=== PATIENT | male | born 1940 | race Caucasian/White ===

== ENCOUNTER 2016-09-02 11:30 | Inpatient (IN) | payer MEDICARE, OTHER ==
[2016-09-02] VITALS (8 sets, daily range): BP systolic 142–153; BP diastolic 69–84; PULSE 62–78; RESP 19–22; O2SAT 93–95
[~2016-09-02] VITALS: Ht 175.3 cm; Wt 114.3 kg
[~2016-09-02 11:30] MED LIST: AMLO10TA3 PO; ATEN100T PO; FENO130C6 PO; GABA800T2 PO; INSU100V7 SUBQ; LISI40TA PO; LOSA50TA37 PO; METF750T2 PO; SIMV10TA4 PO; SITA100T12 PO; TAMS0.4C98 PO; VIT1CAPS8 PO
--- NOTE | 2016-09-02 13:47 | DRSVH ---
PROCEDURE: X-RAY CHEST ONE VIEW, PORTABLE ([id number]) INDICATIONS: shortness of breath TECHNIQUE: One view of the chest was acquired. COMPARISON: [facility], CR, XR CHEST 1VW (PORTABLE), 07/15/2015, 12:47. [facility], CR, XR CHEST 1VW (PORTABLE), 07/17/2015, 13:34. FINDINGS: Surgical changes and devices: None. Lungs and pleura: No pleural effusions or pneumothorax. Lungs are clear. Elevation of the left hem idiaphragm redemonstrated. Mediastinum: Mediastinal contours appear normal. Situs inversus noted. Bones and chest wall: No suspicious bony lesions. Overlying soft tissues appear unremarkable. IMPRESSION: Situs inversus redemonstrated otherwise no acute cardiopulmonary process. Dictated by: Shine Angela [facility] Interpreted: Lilian Gonzales MD on 09/02/2016 at 13:45 Transcribed by: ADRIENNE on 09/02/2016 at 13:47 Approved by: Lilian Gonzales MD, PhD on 09/02/2016 at 17:04
--- NOTE | 2016-09-02 14:41 | ED.REPORT ---
HPI-Dyspnea / Wheezing Date of Service Sep 02, 2016 ED Provider: Pascale Weiner MD Mr. Durga Santiago is a 76-year-old male with past medical history significant for untreated sleep apnea likely obesity hypoventilation syndrome, situs inversus, insulin requiring diabetes type II, Hypertension, who presents to [facility] emergency department with 3-4 day history of extreme dyspnea at rest that worsens with activity. He been treating his sleep apnea with an O2 concentrator at 2 L nasal cannula at night for 1 year now. He discontinued O2 at night 3 weeks ago, and 3-4 days ago he started experiencing extreme short of breath at rest. He visited the urgent care today and his O2 sats were in the 70s by pulse ox. Currently on 3 L nasal cannula here in the emergency department his O2 sats are 94%. His vitals are otherwise stable. He also notes that his lower extremity edema has increased mildly in the last several days. He denies fever, chills, syncope, chest pain, abdominal pain, nausea, vomiting, or consultation, diarrhea, dysuria. He denies sick contacts. He also states that he is compliant with home medications. He reports cough with exertion, shortness of breath, orthopnea, hypersomnolence. Nursing Notes Stated Complaint: SHORTNESS OF BREATH Chief Complaint: Respiratory Complaints Nursing Notes Reviewed: Yes Allergies: Coded Allergies: No Known Allergies (Unverified , 08/21/15) Scheduled Amlodipine (Amlodipine) 10 Mg Tablet 10 MG PO DAILY Atenolol (Atenolol) 100 Mg Tablet 100 MG PO DAILY Fenofibrate,Micronized (Fenofibrate) 130 Mg Capsule 130 MG PO DAILY Gabapentin (Gabapentin) 800 Mg Tablet 800 MG PO TID Insulin Glargine (Lantus U100 Insulin Vial) 100 Unit/Ml Vial 15 UNIT SUBQ DAILY Lisinopril (Lisinopril) 40 Mg Tablet 40 MG PO DAILY Losartan Potassium (Losartan Potassium) 50 Mg Tablet 50 MG PO DAILY Metformin ER (Metformin ER) 750 Mg Tablet 750 MG PO TID Simvastatin (Simvastatin) 10 Mg Tablet 10 MG PO HS Sitagliptin Phos (Januvia) 100 Mg Tablet 100 MG PO DAILY Tamsulosin (Flomax) 0.4 Mg Capsule 0.4 MG PO DAILY Vit C/Vit E/Lutein/Min/Dickens-3 (Ocuvite Softgel) 1 Each Capsule 1 EACH PO DAILY General Time Seen by MD: 13:53 Chief Complaint Shortness of breath Past Medical History Past Medical History Notes: Situs inversus Sleep apnea Hypersomnolence Insulin requiring diabetes type II Hypertension Past Medical History Emphysema MS Dextrocardia Reports: Diabetes mellitus, Hypertension Past Surgical History Gastric banding Vasectomy Family History noncontributory Smoking History Former Smoker Ambulatory Status Independent Review of Systems A comprehensive review of systems was conducted with the patient and found to be negative except as above in the History of Present Illness Physical Exam General: Very pleasant obese individual sitting in bed currently in no acute distress, with nasal cannula in place 3 L O2, well-nourished, appropriately interactive HEENT: Normocephalic, atraumatic. External ears without defect. Pupils equal, round, and reactive to light and accommodation. Anicteric sclerae, moist conjunctivae, and no lid lag. Oropharynx free of erythema and cobble stoning with moist mucosa. Neck: Supple with full range of motion. No jugular venous distension. No bruits. No lymphadenopathy or thyromegaly. Cardiovascular: Patient with situs inversus heart sounds were mirror image on the right side of chest. Regular rate and rhythm with no murmurs, rubs, or gallops appreciated. Prominent S2. Pulmonary: Clear to auscultation bilaterally with mild crackles, mild wheezes, mild scattered rhonchi. Abnormal respiratory effort with use of accessory muscles. Abdomen: Bowel tones present. Soft, nontender, nondistended. No hepatosplenomegaly or masses appreciated. Extremities: No clubbing, cyanosis, mild to moderate lower extremity pitting edema, or lymphadenopathy appreciated. Skin: Normal temperature, turgor, and texture; no rash, ulcers, or subcutaneous nodules appreciated. Neurological: Cranial nerves grossly intact. Normal muscle strength, tone, and bulk. Reflexes, coordination, and sensory function within normal limits. No known gait impairment. Psychiatric: Normal mood and affect. Alert and oriented to person, place, and time. Initial Vital Signs Vital Signs (First) Date Time Temp Pulse Resp B/P Pulse Ox O2 Delivery O2 Flow Rate FiO2 09/02/16 11:34 36.9 69 20 143/69 94 Room Air 09/02/16 13:41 3 Interpretation & Diagnostics Lab Results Interpretation Result Diagram: 09/02/16 1445 09/02/16 1445 Test 09/02/16 14:45 White Blood Count 5.9th/mm3 (3.8-10.1) Red Blood Count 4.18mil/mm3 (4.40-5.80) Hemoglobin 13.5g/dL (13.8-17.2) Hematocrit 42.9% (41.0-50.0) Mean Corpuscular Volume 102.6fL (81-100) Mean Corpuscular Hemoglobin 32.3pg (27.0-35.0) Mean Corpuscular Hemoglobin Concent 31.5% (32.0-37.0) Red Cell Distribution Width 13.6% (12.3-15.4) Platelet Count 142bil/L (150-400) Neutrophils (%) (Auto) 74.0% (40-74) Lymphocytes (%) (Auto) 14.7% (14-46) Monocytes (%) (Auto) 9.0% (4-12) Eosinophils (%) (Auto) 1.9% (0-5) Basophils (%) (Auto) 0.2% (0-3) Sodium Level 143mEq/L (134-144) Potassium Level 4.9mEq/L (3.5-5.2) Chloride Level 100mEq/L (97-108) Carbon Dioxide Level 32mmol/L (18-29) Blood Urea Nitrogen 20mg/dL (8-27) Creatinine 0.76mg/dL (0.76-1.27) Estimat Glomerular Filtration Rate 106mL/min (>59) Glucose Level 124mg/dL (60-99) Calcium Level 9.6mg/dL (8.5-10.1) Total Bilirubin 0.4mg/dL (0.0-1.2) Aspartate Amino Transf (AST/SGOT) 15U/L (0-50) Alanine Aminotransferase (ALT/SGPT) 11U/L (0-44) Alkaline Phosphatase 30U/L (25-160) Troponin T < 0.010ug/L (0.0-0.011) Pro-B-Type Natriuretic Peptide 572.3pg/mL (0-486) Total Protein 7.6g/dL (6.4-8.4) Albumin 4.2g/dL (3.4-5.0) Hold Martinez Top Tube Received (Received) Re-Eval/Medical Decision Med Decision/Clinical Course Mr. Durga Santiago is a 76-year-old male with past medical history significant for untreated sleep apnea likely obesity hypoventilation syndrome, situs inversus, insulin requiring diabetes type II, Hypertension, who presents to [facility] emergency department with 3-4 day history of extreme dyspnea at rest that worsens with activity. He been treating his sleep apnea with an O2 concentrator at 2 L nasal cannula at night for 1 year now. He discontinued O2 at night 3 weeks ago, and 3-4 days ago he started experiencing extreme short of breath at rest and with activity. Differential diagnoses includes CHF, COPD exacerbation, respiratory failure, MS , obesity hyperventilation syndrome, pulmonary hypertension... Patient is experiencing significant respiratory failure with sats in the 70% on room air at urgent care. He has been using his oxygen the last 4 days with no ability to find relief of shortness of breath. His physical exam findings of worsening lower extremity edema and hypoxia on room air along with situs inversus and obesity hyperventilation syndrome with poorly controlled sleep apnea is likely exacerbating secondary effects of Pulmonary hypertension and some element of congestive heart failure. Although his initial troponins and EKG were normal, and his pro-BNP was just above normal limits, he is exhibiting clinical signs and symptoms that need to be treated. He is certainly hypercapnic CO2 32. Admission to the hospital and cardiac consult with echo is recommended. Discharge & Departure Impression: Primary Impression: Respiratory distress Additional Impressions: COPD with acute exacerbation Congestive cardiac failure Edema Disposition: ADMITTED TO HOSPITAL Referrals: Nicholas Boggs MD (PCP) Attending Statement 76-year-old gentleman presents with oxygen saturations in the 70 range on room air. He uses oxygen only at night in place of CPAP which would be far more appropriate. Oxygen saturations improved with 4 L of nasal cannula increased edema on concern for developing congestive heart failure. Hypoxic respiratory failure with increasing hypercarbia responding nicely to oxygenation. No evidence of pneumonia. Will likely benefit from diuresis and likely echocardiogram. Underlying severe sleep apnea is probably exacerbating all of the symptoms admission to the hospital is recommended. Will likely benefit from CPAP over the course of the evening while he is sleeping (his own BiPAP machine apparently is broken) Agree with documentation assessment and plan as above copies to: Nicholas Boggs MD, COREY P DO Sep 02, 2016 14:41 Pascale Weiner MD Sep 02, 2016 16:27
[2016-09-02 14:55] LABS: BASOPHILS % (AUTO) 0.2 % (0-3); EOSINOPHILS % (AUTO) 1.9 % (0-5); Mean Corpuscular Hemoglobin 32.3 pg (27.0-35.0); Mean Corpuscular Volume 102.6 fL (81-100); Platelet Count 142 bil/L (150-400)
[2016-09-02 15:43] LABS: TROPONIN T < 0.010 ug/L (0.0-0.011)
[2016-09-02] MEDS ORDERED: Ondansetron 2 mg/mL 2 mL Inj IVPUSH PRN (16:00)
[2016-09-02] MEDS ORDERED: Polyethylene Glycol (PEG) 17 Gm Powder PO PRN (16:00)
[2016-09-02] MEDS ORDERED: Alum-Mag Hydrox-Simeth 30 mL Suspension PO PRN (16:00)
--- NOTE | 2016-09-02 18:20 | NUR ---
Arrival to floor Pt arrived to floor in bed from ED, alert, oriented, O2 at 3L, IV SL. Pt denies pain at this time, states he is "just tired".
[2016-09-02 18:22] LABS: APPEARANCE,URINE CLEAR (CLEAR,HAZY); COLOR,URINE YELLOW (YELLOW)
[2016-09-02 18:23] LABS: OCCULT BLOOD,URINE NEGATIVE (NEGATIVE)
--- NOTE | 2016-09-02 19:11 | PCM.HPMED ---
Subjective Date of Service Sep 02, 2016 Primary Provider: Admitting Physician: Rochelle Seals DO Primary Care Physician: Nicholas Boggs MD Attending Physician: Rochelle Seals DO Chief Complaint: Shortness of breath and weakness History of Present Illness: 76 year old male presents with the c/o of weakness and SOB. The patient stated that he was prescribed oxygen at night time 2L for the last year. The patient stated that his PCP told him that his oxygen perscription was running out and that he needed to have a sleep study for HARRISON. The patient stated that he stopped using his oxygen in july and thought that he would go "natural/" for his sleep study scheduled for 09/19/16. The patient stated that he has been progresively becoming SOB and today he has become more weak. He stated that his daughters mentioned that while using the oxygen he was no longer having apenic episodes and he thought that he no longer had the problem and thought that he could go without the oxygen. Today the patient was extremely SOB and very weak and shaking. Since coming to the ED and being back on the oxygen he has been feeling better. 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 ETOH: former heavy drinker, currently only 1-2 vodkas per week Smoking: Quit 1976, previous 1.5-2PPD for 15 years Drugs: patient denies ROS 12pt review of systems was performed or attempted to be performed see HPI for pertinent positives Allergies Coded Allergies: No Known Allergies (Unverified , 08/21/15) PMH Social History Hx Alcohol Use: Yes (2 drinks max a couple of times a week) Hx Substance Use: No Smoking Status: Former Smoker Exam Vital Signs Vital Sign - Last Date Time Temp Pulse Resp B/P Pulse Ox O2 Delivery O2 Flow Rate FiO2 09/02/16 17:40 37.0 62 20 145/84 94 Nasal Cannula 2 Exam Physical Exam: Patient is situs inversus GEN: Patient was awake, alert, responding appropriately to questions HEENT: PERRLA, EOMI, Neck soft supple, trachea midline, nomocephalic/atraumatic CV: +S1/S2, RRR, no murmurs auscultated Respiratory: CTAB, no wheezes, rales, rhonchi GI: +bowel sounds x4, soft, compressible, non TTP, obese EXT: no c/c trace edema bilaterally Neuro: CN II-XII grossly intact Psych: mood and affect were appropriate Lab and Diagnostics Result Diagram: 09/02/16 1445 09/02/16 1445 Assessment & Plan 76 year old male who presents with a complaint of shortness of breath and weakness secondary to hypoxia Acute respiratory hypoxia from hypercapnia -Continue 2 L of nasal cannula -Duo nebs when necessary shortness of breath -Continue to monitor -Sleep study as an outpatient Weakness most likely secondary to chronic hypoxia -Continue oxygen maintaining oxygen saturations are 92% and above -PT evaluation Hypertension -Currently stable continue home medications Diabetes -Currently stable continue home medications -We will continue to monitor Hyperlipidemia -Currently stable continue simvastatin 10 mg daily DVT prophylaxis Lovenox Diet -Diabetic CODE STATUS: Patient is full code Disposition: Patient will most likely not cross to midnight, the patient will most likely just need re-oxygenation and a physical therapy evaluation. Patient has been admitted under observation status. Resuscitation Status: CPR: Attempt Resuscitation Time spent Greater than 35 minutes Rochelle Seals DO Sep 02, 2016 18:40
[2016-09-02] MEDS: Albuterol-Ipratropium 3 mL Inhalation Solution NEB PRN (20:12)
[2016-09-02] MEDS: Insulin GLARgine 100 Unit/mL Syringe SUBQ SCH (21:47)
[2016-09-02] MEDS: metFORMIN ER 500 mg ER24 Tablet PO SCH (22:17)
[2016-09-03] VITALS (10 sets, daily range): BP systolic 124–167; BP diastolic 67–82; PULSE 57–83; RESP 20–28; O2SAT 92–96
--- NOTE | 2016-09-03 04:54 | NUR ---
Respiratory Pt on 4L NC throughout shift d/t ongoing dyspnea; pt states "I feel better now than I have in weeks, but I'm still so weak and it's hard to breathe." SpO2 95% on 4L NC; CPOX in room for known HARRISON. Pt significantly weak on exertion, requires SBA-1PA. Pt c/o insomnia throughout shift, paged, one time order for melatonin placed and administered. Pt able to rest for several hours, and states "I might try getting that at home." Admission documentation complete, med rec clarified with pharmacy. Family to bring in copy of advanced directive. CHF booklet given to pt.
[2016-09-03 06:57] LABS: Mean Corpuscular Hemoglobin 32.2 pg (27.0-35.0); Mean Corpuscular Volume 104.1 fL (81-100)
[2016-09-03] MEDS ORDERED: Furosemide 10 mg/mL 2 mL Inj IVPUSH ONE (07:50)
[2016-09-03] MEDS ORDERED: Lisinopril 40 Tablet PO SCH (08:30)
[2016-09-03] MEDS: metFORMIN ER 500 mg ER24 Tablet PO SCH ×3 (08:38→20:37)
[2016-09-03] MEDS: Insulin GLARgine 100 Unit/mL Syringe SUBQ SCH (08:39)
--- NOTE | 2016-09-03 10:36 | NUR ---
Case Management: JAMES explained, patient signed, provided copy of JAMES signed 09/03/16 at 10:02am. CPerryRNCCM.
--- NOTE | 2016-09-03 16:00 | NUR ---
Social Work-initial assessment: Data:See initial assessment. Pt is a 76 y/o male who was admitted on 09/02/16 for dyspnea per H&P. Pt's insurance is [employer] and PCP is Nicholas Boggs Md. EMR Reviewed. Pt's readmissions score is 2. SW met with pt at bedside, SW role explained. Pt resides at home with his who pt is the primary caregiver for. Pt states his daughter is at home assisting with her. Pt does not use any DME and drives. Pt has no HH history, but has been to [facility]. 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 SW discussed DPOA/ advanced directive, pt states he has completed this, SW encouraged him to bring a copy into the hospital. PT worked with pt and recommended home with HH. SW discussed HH, pt states he would like SW to follow up tomorrow when his daughter is here. SW provided phone number and plan on white board. SW will continue to follow. Assessment:Pt who is independent at baseline. Plan:Pt to discharge home when medically stable. SW to follow up with pt and daughter regarding HH tomorrow. SW will continue to follow. SIMA Hernandez Addendum: 09/03/16 at 1604 by LAURO ANDERSON Amended: Links added.
--- NOTE | 2016-09-03 16:49 | PCM.PNMED ---
Subjective Date of Service Sep 03, 2016 Subjective Patient was examined at bedside today. Patient denies any chest pain, nausea, vomiting, diarrhea. The patient still reports shortness of breath and is in need of oxygen support. Nursing reported that overnight the patient did not do well with decreasing his oxygen as his saturations dropped into the mid 80s. Exam Vital Signs Vital Sign - Last Date Time Temp Pulse Resp B/P Pulse Ox O2 Delivery O2 Flow Rate FiO2 09/03/16 16:31 36.6 66 20 146/77 94 Nasal Cannula 4.00 Intake and Output 09/02/16 09/02/16 09/03/16 Cumulative From/Thru 15:00 23:00 07:00 09/02/16 11:34 - 09/03/16 05:35 Intake Total 300 ml 300 ml Output Total 950 ml 950 ml Balance -650 ml -650 ml Intake Oral 300 ml 300 ml Output Urine Total 950 ml 950 ml Exam Physical Exam: Patient is situs inversus GEN: Patient was awake, alert, responding appropriately to questions HEENT: PERRLA, EOMI, Neck soft supple, trachea midline, nomocephalic/atraumatic CV: +S1/S2, RRR Respiratory: CTAB, no wheezes, rales, rhonchi GI: +bowel sounds x4, soft, compressible, non TTP EXT: no c/c +1 pitting edema in the lower extremities Neuro: CN II-XII grossly intact Psych: mood and affect were appropriate IVs and Medications Medications Reviewed: Medications were reviewed in detail Medications Current Medications Al Hydrox/Mg Hydrox/Simethicone 30 ml Q6H PRN PO; Start 09/02/16 at 16:00 Ondansetron HCl 4 to 8 mg Q4H PRN IVPUSH; Start 09/02/16 at 16:00 Senna 17.2 mg BID PRN PO; Start 09/02/16 at 16:00 Polyethylene Glycol 17 gm DAILY PRN PO; Start 09/02/16 at 16:00 Insulin Glargine 15 unit DAILY SUBQ Last administered on 09/03/16t 08:39; Admin Dose 15 UNIT; Start 09/02/16 at 19:15 Lisinopril 40 mg DAILY PO; Start 09/03/16 at 08:30; Stop 09/03/16 at 08:30; Status DC Losartan Potassium 50 mg DAILY PO Last administered on 09/03/16 08:38; Admin Dose 50 MG; Start 09/03/16 at 08:30 Tamsulosin HCl 0.4 mg DAILY PO Last administered on 09/03/16 08:38; Admin Dose 0.4 MG; Start 09/03/16 at 08:30 Amlodipine Besylate 10 mg DAILY PO Last administered on 09/03/16 08:38; Admin Dose 10 MG; Start 09/03/16 at 08:30 Atenolol 100 mg DAILY PO Last administered on 09/03/16 08:39; Admin Dose 100 MG ; Start 09/03/16 at 08:30 Gabapentin 800 mg TID PO Last administered on 09/03/16 14:33; Admin Dose 800 MG ; Start 09/02/16 at 20:30 Metformin HCl 750 mg TID PO Last administered on 09/03/16 14:33; Admin Dose 750 MG; Start 09/02/16 at 22:00 Pravastatin Sodium 20 mg HS PO Last administered on 09/02/16 21:44; Admin Dose 20 MG; Start 09/02/16 at 21:00 Sitagliptin Phosphate 100 mg DAILY PO Last administered on 09/03/16 08:38; Admin Dose 100 MG; Start 09/03/16 at 08:30 Albuterol/ Ipratropium 3 ml Q6H PRN NEB Last administered on 09/02/16 20:12; Admin Dose 3 ML; Start 09/02/16 at 19:15 Melatonin 5 mg HS PRN PO Last administered on 09/03/16 03:42; Admin Dose 5 MG ; Start 09/03/16 at 03:35 Lab and Diagnostics Result Diagram: 09/03/1615 09/03/1615 Assessment & Plan 76 year old male who presents with a complaint of shortness of breath and weakness secondary to hypoxia Acute respiratory hypoxia from hypercapnia -Continue 2 L of nasal cannula -Duo nebs when necessary shortness of breath -Continue to monitor -Sleep study as an outpatient -Respiratory therapy has been consulted for possible home O2 usage Elevated BNP -Echo ordered results pending -1 time dose of IV Lasix 20 mg Weakness most likely secondary to chronic hypoxia -Continue oxygen maintaining oxygen saturations at 92% and above -PT evaluation Hypertension -Currently stable continue home medications Diabetes -Currently stable continue home medications -We will continue to monitor Hyperlipidemia -Currently stable continue simvastatin 10 mg daily DVT prophylaxis Lovenox Diet -Diabetic CODE STATUS: Patient is full code Disposition: The patient is currently requiring higher levels of oxygen needs at this time. Patient will be evaluated for possible home O2. We will make adjustments to patient's current medical therapy after echo results. We will continue to monitor and manage. VTE Mechanical Devices: Venous Foot Pump Resuscitation Status: CPR: Attempt Resuscitation Rochelle Seals DO Sep 03, 2016 16:49
[2016-09-04] VITALS (13 sets, daily range): BP systolic 136–170; BP diastolic 67–81; PULSE 59–72; RESP 14–22; O2SAT 86–98
--- NOTE | 2016-09-04 03:46 | NUR ---
NOC Lethargic/O2 supplementation Pt appears really lethargic around 1900, respirations dropping and o2 saturation running low 80's and had to be blasted on 7LPM Oxymask in order to maintain saturation around 90. Pt is little difficult to awaken and states that he feels really weak. Pt denies chest pain, n/v, abd discomfort. Will continue to monitor.
[2016-09-04] MEDS ORDERED: Furosemide 10 mg/mL 4 mL Inj IVPUSH ONE (06:25)
[2016-09-04 06:38] LABS: Mean Corpuscular Hemoglobin 33.4 pg (27.0-35.0); Mean Corpuscular Volume 103.6 fL (81-100)
--- NOTE | 2016-09-04 06:43 | ABG ---
DateTimeAnalyzed 06:39:00 -_ pH ____7.161 - 7.350 7.450 pCO2 109 -mmHg 35.0 45.0 pO2 ___78.8__ -mmHg 69.0 116 HCO3- ___37.2__ -mmol/L 22.0 26.0 ABE ____4.8__ -mmol/L -2.0 2.0 tHb ___13.0__ -g/dL O2Hb ___91.9__ -% COHb ____1.4__ -% MetHb ____0.9__ -% sO2 ___94.1__ -% 25.0 FIO2 ___40.0__ -% Drawn By blf - Date/Time Notified____ 06:43:00 -_ Spontaneous_RR ___18.0__ -b/min Liter_Flow ____5.0__ -L/min Oxygen Device 1 _oxy mask - Notified By blf - Notified Whom ___Dr. Fuimaono - B 766 -mmHg tO2 ___16.8__ -Vol% OrderingPhysicianInitials mf - Juan Pablo test N/A -
--- NOTE | 2016-09-04 07:08 | NUR ---
called family this am to update this RN talked with family to let them know pt condition and that he was being moved to room 2020. ph# [phone]
--- NOTE | 2016-09-04 07:33 | NUR ---
Transfer Pt transfer to 2019 EBER Garcia received pt with report.
--- NOTE | 2016-09-04 08:28 | NUR ---
Transfer assumed care of patient at about 0715. pt lethargic, on bi pap. sl. minimally responsive. 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 telemetry monitoring, stable and unchanged. RT adjusting bipap. will continue to monitor.
[2016-09-04] MEDS: metFORMIN ER 500 mg ER24 Tablet PO SCH ×3 (08:30→20:10)
[2016-09-04] MEDS: Insulin GLARgine 100 Unit/mL Syringe SUBQ SCH (08:30)
--- NOTE | 2016-09-04 09:56 | NUR ---
Respiratory pt continues to be lethargic and with decreased responsiveness. Bi-pap continues per RT adjustments. MD paged and came to see patient and update family. orders for abg. WCTM.
--- NOTE | 2016-09-04 10:12 | ABG ---
DateTimeAnalyzed 10:06:00 -_ pH ____7.246 - 7.350 7.450 pCO2 ___90.3__ -mmHg 35.0 45.0 pO2 ___67.7__ -mmHg 69.0 116 HCO3- ___37.9__ -mmol/L 22.0 26.0 ABE ____7.5__ -mmol/L -2.0 2.0 tHb ___12.9__ -g/dL O2Hb ___90.9__ -% COHb ____1.6__ -% MetHb ____0.9__ -% sO2 ___93.2__ -% 25.0 FIO2 ___50.0__ -% Pressure_Support ___24.0__ -cmH2O CPAP ___16.0__ -cmH2O Set_RR ___16.0__ -b/min Vt __450.0__ -L Drawn By gj - Date/Time Notified____ 10:11:00 -_ Spontaneous_RR ___18.0__ -b/min Oxygen Device 1 ____BIPAP - Notified By gj - Notified Whom ___BARNES - B 766 -mmHg tO2 ___16.5__ -Vol% Juan Pablo test _Positive -
--- NOTE | 2016-09-04 10:30 | DRSVH ---
[facility] [address] [place] [address] Echocardiogram Report Name: ABBY BRAVO te: 09/04/2016 Height: 6 9 in Hospital Exam Location: [facility] Weight: 2 43 lb Gender: Male BSA: 2.2 m2 : 1940 Age: 76 yrs BP: 170/7 5 mmHg Reason For Study: ELEVATED BNP History: Situs inversus, COPD, HTN, Diabetes Ordering Physician: HOSPITALIST [facility] Performed By: Kayla Iglesias Referring Physician: Dr. Nicholas Boggs Interpretation Summary Technically difficult study. The patient has Situs Inversus. Borderline concentric left ventricular hypertrophy with ejection fraction 60- 65%. Mild aortic valve sclerosis. Mild tricuspid regurgitation. Right ventricular systolic pressure is estimated to be 32 mmHg plus the clinically estimated CVP which cannot be estimated on this exam. Comparison is made with the echocardiogram of 07/16/2015, there has been no significant change. Procedure: A two-dimensional transthoracic echocardiogram with color flow and Doppler was performed. The study quality was technically difficult. The patient has SITUS INVERSUS. Comparison is made with the echocardiogram of 07/16/2015. A contrast injection of Definity was performed to improve assessment of LV function. The patient was in normal sinus rhythm during the exam. Left Ventricle: The left ventricle is normal in size. There is borderline concentric left ventricular hypertrophy. The ejection fraction is estimated to be 60-65%. There are no obvious focal wall motion abnormalities noted but poor endocardial definition reduces the sensitivity for the detection of such. Spectral Doppler of the mitral inflow yields an E/A ratio that is between 0.8 and 1.5. Right Ventricle: The right ventricle is not well visualized. Atria: The left atrium is not well visualized. Right atrium not well visualized. Mitral Valve: The mitral valve is grossly normal. There is no mitral regurgitation noted. Aortic Valve: The aortic valve is trileaflet. The aortic valve opens well. There is mild aortic valve sclerosis. No aortic regurgitation is present. Tricuspid Valve: The tricuspid valve leaflets are thin and pliable. There is mild tricuspid regurgitation. Right ventricular systolic pressure is estimated to be 32 mmHg plus the clinically estimated CVP which cannot be estimated on this exam. Pulmonic Valve: The pulmonic valve is not well seen, but is grossly normal. There is a trace or physiologic amount of pulmonic regurgitation. Great Vessels: The aortic root is normal size. The ascending aorta is at the upper limits of normal in size. The pulmonary artery is normal size. The IVC has a measurement of 22 mm. Inspiratory collapse cannot be assessed because the patient was unarousable, thus CVP cannot be estimated. Pericardium/ Pleura There is no pericardial effusion. MMode/2D Measurements & Calculations LVIDd: 4.3 cm IVC diam LVOT diam LV andrade. diameter/BSA LVIDs: 3.1 cm : 2.2 cm (cm/m^2): 1.9 FS: 27.3 % Ao root diam IVSd: 1.2 cm LVPWd: 0.90 cm asc Aorta Diam: 3.5 cm LV sys. diameter/BSA (cm/m^2): 1.4 Doppler Measurements & Calculations Ao V2 max MV E max david MV E/A: 1.1 TR max david : 136.3 cm/sec : 100.1 cm/sec Med Peak E' David : 283.8 cm/sec Ao max PG MV A max david TR max PG : 7.4 mmHg : 87.7 cm/sec E/E' med: 13.2 : 32.2 mmHg Ao mean PG MV P1/2t: 44.3 msec Lat Peak E' David PA V2 max : 4.0 mmHg : 107.2 cm/sec E/E' lat: 11.4 PA mean PG E/e' average: 12.3 MV A dur: 0.12 sec PA Accel Time : 0.10 sec MV dec time MV P1/2t max david Ao V2 mean PA V2 mean : 0.15 sec : 93.4 cm/sec : 77.1 cm/sec Ao V2 VTI: 31.1 cm MVA(P1/2t): 5.0 cm2 Electronically signed by: Suzette Sosa on Reading Physician:09/04/2016 10:29 AM
--- NOTE | 2016-09-04 11:40 | NUR ---
Medications discussed status of patient with MD regarding daily medications. instructed to withhold meds at this time while patient needing Bipap treatment. will continue to monitor.
--- NOTE | 2016-09-04 12:00 | PCM.PNMED ---
Subjective Date of Service Sep 04, 2016 Subjective Patient was seen and examined today at bedside. Overnight the patient began to become even more hypercapnic and somnolent. An ABG was done and showed that the patient was acidotic and his CO2 levels were over 100. It was decided that the patient needed to be placed on BiPAP. The patient was placed on BiPAP and then transferred to [facility]. The patient this morning was somnolent however he seemed to be improving and was able to respond to questions. The family was present at bedside. A family discussion was had and the patient's 2 daughters and were in agreement with the current plan. Exam Vital Signs Vital Sign - Last Date Time Temp Pulse Resp B/P Pulse Ox O2 Delivery O2 Flow Rate FiO2 09/04/16 08:22 CPAP/BIPAP 09/04/16 07:35 58 19 96 50 09/04/16 07:30 36.6 136/69 09/04/16 04:58 7.00 Intake and Output 09/03/16 09/03/16 09/04/16 Cumulative From/Thru 15:00 23:00 07:00 09/02/16 11:34 - 09/04/16 04:58 Intake Total 549 ml 400 ml 1249 ml Output Total 1175 ml 500 ml 2625 ml Balance -626 ml -100 ml -1376 ml Intake Oral 549 ml 400 ml 1249 ml Output Urine Total 1175 ml 500 ml 2625 ml Exam Physical Exam: Situs inversus GEN: Patient was awake, somnolent, able to follow commands HEENT: PERRLA, EOMI, Neck soft supple, trachea midline, nomocephalic/atraumatic CV: +S1/S2, RRR, systolic murmur auscultated Respiratory: Coarse breath sounds, BiPAP in place GI: +bowel sounds x4, soft, compressible, non TTP EXT: no c/c/+1 pitting edema improved from yesterday IVs and Medications Medications Reviewed: Medications were reviewed in detail Medications Current Medications Al Hydrox/Mg Hydrox/Simethicone 30 ml Q6H PRN PO; Start 09/02/16 at 16:00 Ondansetron HCl 4 to 8 mg Q4H PRN IVPUSH; Start 09/02/16 at 16:00 Senna 17.2 mg BID PRN PO; Start 09/02/16 at 16:00 Polyethylene Glycol 17 gm DAILY PRN PO; Start 09/02/16 at 16:00 Insulin Glargine 15 unit DAILY SUBQ Last administered on 09/03/16 08:39; Admin Dose 15 UNIT; Start 09/02/16 at 19:15 Lisinopril 40 mg DAILY PO; Start 09/03/16 at 08:30; Stop 09/03/16 at 08:30; Status DC Losartan Potassium 50 mg DAILY PO Last administered on 09/03/16 08:38; Admin Dose 50 MG; Start 09/03/16 at 08:30 Tamsulosin HCl 0.4 mg DAILY PO Last administered on 09/03/16 08:38; Admin Dose 0.4 MG; Start 09/03/16 at 08:30 Amlodipine Besylate 10 mg DAILY PO Last administered on 09/03/16 08:38; Admin Dose 10 MG; Start 09/03/16 at 08:30 Atenolol 100 mg DAILY PO Last administered on 09/03/16 08:39; Admin Dose 100 MG ; Start 09/03/16 at 08:30 Gabapentin 800 mg TID PO Last administered on 09/03/16 20:37; Admin Dose 800 MG ; Start 09/02/16 at 20:30 Metformin HCl 750 mg TID PO Last administered on 09/03/16 20:37; Admin Dose 750 MG; Start 09/02/16 at 22:00 Pravastatin Sodium 20 mg HS PO Last administered on 09/03/16 20:37; Admin Dose 20 MG; Start 09/02/16 at 21:00 Sitagliptin Phosphate 100 mg DAILY PO Last administered on 09/03/16 08:38; Admin Dose 100 MG; Start 09/03/16 at 08:30 Albuterol/ Ipratropium 3 ml Q6H PRN NEB Last administered on 09/02/16 20:12; Admin Dose 3 ML; Start 09/02/16 at 19:15 Melatonin 5 mg HS PRN PO Last administered on 09/03/16 03:42; Admin Dose 5 MG ; Start 09/03/16 at 03:35 Lab and Diagnostics Result Diagram: 09/04/16 0545 09/03/16 0615 Assessment & Plan 76 year old male who presents with a complaint of shortness of breath and weakness secondary to hypoxia Acute respiratory on chronic hypoxia with hypercapnia secondary to obesity hypoventilation syndrome -Continue BiPAP patient is a candidate for Trilogy therapy -Continue to monitor -Sleep study as an outpatient -Respiratory therapy has been consulted for possible home O2 usage (Trilogy mechanical ventilation Patient's PCO2 levels 102) -Telemetry Elevated BNP -Echo ordered results pending Weakness most likely secondary to chronic hypoxia -Continue oxygen maintaining oxygen saturations at 92% and above -PT evaluation deferred at this time the patient is currently on BiPAP Hypertension -Currently stable we will hold medications at this time and administer them as the patient becomes more hypertensive. Patient is currently needing continuous BiPAP. We will change medications from oral to IV as necessary Diabetes -Currently stable we will hold all home medications at this time as the patient is not eating continue Accu-Cheks and will adjust with sliding scale as necessary. -We will continue to monitor Hyperlipidemia -Currently stable we will hold all medications at this time until patient is no longer dependent on BiPAP DVT prophylaxis Lovenox GI prophylaxis: Protonix IV Diet -NPO while on BiPAP Diabetic CODE STATUS: Patient is full code Disposition: The patient's oxygen requirements have increased and the patient is trapping O2. The patient seems to be responding well to BiPAP therapy. We will continue BiPAP until patient returns back to his baseline mentation. Patient will remain nothing by mouth and we will monitor his blood sugars and treat him accordingly with insulin sliding scale. His blood pressure has been stable if it should start to increase we will control that with IV blood pressure medications as well. Because the patient has obesity hypoventilation syndrome and a PCO2 of greater than 50 he should qualify for Trilogy mechanical ventilation. It was noted by respiratory therapy that while the patient was on BiPAP he only had a tidal volume of 200 however when they did a jaw thrust his tidal volume increased to 500. The patient has been requiring nocturnal and daytime volume ventilation at this time and it seems that BiPAP may be insufficient due to the severity of his obesity hypoventilation syndrome. It is felt that the patient would benefit from Trilogy mechanical ventilation as it seems that the obesity hypoventilation syndrome seems to be the major cause of the patient's hypercapnia. The patient has been improving with BiPAP but Trilogy would most likely be more beneficial for this particular patient due to his obesity hypoventilation syndrome. GI Prophylaxis: Proton Pump Inhibitor VTE Prophylaxis: Sub-Q Enoxaparin VTE Mechanical Devices: Intermittant Pneumatic CD Resuscitation Status: CPR: Attempt Resuscitation Rochelle Seals DO Sep 04, 2016 12:00
[2016-09-04] MEDS: Pantoprazole 4 mg/mL 10 mL Inj IVPUSH SCH (13:04)
--- NOTE | 2016-09-04 16:08 | NUR ---
Social Work Note: Received call from [facility] BROADCAST TRAFFIC COORDINATOR Sommer, she reports pt. transferring to room #2020 today. She anticipates that pt. will most likely benefit from home health. Also spoke with Diane from [employer]. She reports pt. in process of getting trilogy for home use. P: BROADCAST TRAFFIC COORDINATOR to follow up on wether or not home health needed at time of d/c? Respiratory visit will be provided with trilogy delivery. BROADCAST TRAFFIC COORDINATOR unable to meet with pt/family today. SIMA Moncada
[2016-09-05] VITALS (15 sets, daily range): BP systolic 132–167; BP diastolic 57–79; PULSE 52–80; RESP 16–24; O2SAT 94–98
[2016-09-05 03:56] LABS: Mean Corpuscular Volume 104.9 fL (81-100)
--- NOTE | 2016-09-05 05:02 | NUR ---
Oliveros/BiPap Pt c/o full bladder, unable to urinate despite multiple tries. Bladder scan shows PVR of 658ml. paged, orders received for oliveros. Oliveros placed without complication at 2230. Pt somnolent at beginning of shift, BiPap at 50% O2. Pt awakens later in shift, requesting to remove BiPap. Placed on 6L oxymask and sating mid 90's, with RR stable 17-21. Pt later notes that he feels he is not able to breath when he falls asleep or when his head is laid back. RT made aware, placed back on BiPap at 0500 for HARRISON symptoms.
--- NOTE | 2016-09-05 05:13 | ABG ---
DateTimeAnalyzed 05:07:00 -_ pH ____7.334 - 7.350 7.450 pCO2 ___74.6__ -mmHg 35.0 45.0 pO2 ___75.7__ -mmHg 69.0 116 HCO3- ___38.6__ -mmol/L 22.0 26.0 ABE ___10.3__ -mmol/L -2.0 2.0 tHb ___12.2__ -g/dL O2Hb ___92.8__ -% COHb ____1.6__ -% MetHb ____0.9__ -% sO2 ___95.2__ -% 25.0 FIO2 ___48.0__ -% Drawn By MM - Date/Time Notified____ 05:12:00 -_ Spontaneous_RR ___19.0__ -b/min Liter_Flow ____6.0__ -L/min Oxygen Device 1 __oxymask - Notified By MM - Notified Whom RN - B 763 -mmHg tO2 ___16.0__ -Vol% Juan Pablo test _Positive -
[2016-09-05] MEDS: Insulin GLARgine 100 Unit/mL Syringe SUBQ SCH (08:30)
[2016-09-05] MEDS: metFORMIN ER 500 mg ER24 Tablet PO SCH ×3 (08:30→19:26)
[2016-09-05] MEDS: Pantoprazole 4 mg/mL 10 mL Inj IVPUSH SCH (08:59)
--- NOTE | 2016-09-05 11:41 | NUR ---
Social Work: Continued Discharge Planning D: Pt discussed in am rounds. [facility]. Pt lives at home with his . PT was able to work with the pt today- pt was not able to fully participate due to many lines and uncomfortable foly placement. Current recommendation is for SNF however pt may be able to advance towards a discharge home with HH. Per MD at rounds, pt will be here several more days. MACHINE PIE MAKER met with pt and family at bedside to discuss discharge planning. Current PT recommendation reviewed. Pt and family are agreeable to dual planning; SNF and HH Choice list provided to pt and dtr. Primary plan is to return home with [facility] for RN and PT. Pt understands he will need to demonstrate safe ambulation with PT. If he is unable to do so, pt is willing to go to [facility] [facility]. 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 He is eager to go home and care for her. As pt's was in the room, MACHINE PIE MAKER casually mentioned [facility] for pt's if pt requires SNF. They state that they will discuss this with MACHINE PIE MAKER at a later date if pt will, in fact, require SNF. SOFTWARE DATABASE ARCHITECT notified to provide referral and access for [facility]. PPW and PASSR completed and on chart. F2F in folder for MD signature. A: Pt who is I at baseline. P: Evolving; Either pt to d/c home with [facility] for RN, PT or SNF. [facility] [facility] reviewing. MACHINE PIE MAKER to continue to follow pt's progress. SIMA Barajas
--- NOTE | 2016-09-05 11:48 | NUR ---
Gave access and faxed facesheet to [facility] per FRUIT HARVESTER
--- NOTE | 2016-09-05 14:11 | PCM.PNMED ---
Subjective Date of Service Sep 05, 2016 Subjective Patient was seen and examined today at bedside. Patient's did have the BiPAP still in place. Patient's mentation has significantly improved and he is able to answer questions appropriately. Patient denies any chest pain, nausea, vomiting, diarrhea. Exam Vital Signs Vital Sign - Last Date Time Temp Pulse Resp B/P Pulse Ox O2 Delivery O2 Flow Rate FiO2 09/05/16 11:30 68 18 98 09/05/16 08:50 36.8 167/75 BiPAP 50 09/05/16 04:29 6.00 Intake and Output 09/04/16 09/04/16 09/05/16 Cumulative From/Thru 15:00 23:00 07:00 09/02/16 11:34 - 09/05/16 06:15 Intake Total 0 ml 1249 ml Output Total 550 ml 850 ml 4025 ml Balance -550 ml -850 ml -2776 ml Intake Oral 0 ml 1249 ml Output Urine Total 550 ml 850 ml 4025 ml # Voids 1 1 # Bowel Movements 0 0 Exam Physical Exam: GEN: Patient was awake, alert, responding appropriately to questions HEENT: PERRLA, EOMI, Neck soft supple, trachea midline, nomocephalic/atraumatic CV: +S1/S2, RRR, systolic murmurs auscultated Respiratory: Coarse breath sounds, BiPAP in place GI: +bowel sounds x4, soft, compressible, non TTP EXT: no c/c/+1 pitting edema Neuro: CN II-XII grossly intact Psych: mood and affect were appropriate IVs and Medications Medications Reviewed: Medications were reviewed in detail Medications Current Medications Pantoprazole 40 mg DAILY IVPUSH Last administered on 09/05/16 08:59; Admin Dose 40 MG; Start 09/04/16 at 11:55 Enoxaparin Sodium 40 mg Q24 SUBQ Last administered on 09/05/16 08:59; Admin Dose 40 MG; Start 09/04/16 at 12:27 Lab and Diagnostics Result Diagram: 09/05/163 09/05/163 Cardiac Echo Impressions [address] [address] Echocardiogram Report Name: ABBY BRAVO DStudmadison Da te: 09/04/2016 Height: 6 9 in Hospital Exam Location: [facility] Weight: 2 43 lb Gender: Male BSA: 2.2 m2 : 1940 Age: 76 yrs BP: 170/7 5 mmHg Reason For Study: ELEVATED BNP History: Situs inversus, COPD, HTN, Diabetes Ordering Physician: HOSPITALIST [facility] Performed By: Kayla Iglesias Referring Physician: Dr. Nicholas Boggs Interpretation Summary Technically difficult study. The patient has Situs Inversus. Borderline concentric left ventricular hypertrophy with ejection fraction 60- 65%. Mild aortic valve sclerosis. Mild tricuspid regurgitation. Right ventricular systolic pressure is estimated to be 32 mmHg plus the clinically estimated CVP which cannot be estimated on this exam. Comparison is made with the echocardiogram of 07/16/2015, there has been no significant change. Assessment & Plan 76 year old male who presents with a complaint of shortness of breath and weakness secondary to hypoxia Acute respiratory on chronic respiratory failure and hypoxia with hypercapnia secondary to obesity hypoventilation syndrome -Continue BiPAP patient is a candidate for Trilogy therapy -Continue to monitor -Sleep study as an outpatient -Respiratory therapy has been consulted for assistance with BiPAP management and possible home O2 usage (Trilogy mechanical ventilation Patient's PCO2 levels 102) -Continue Telemetry Elevated BNP -Echo results unchanged from previous echo 07/18/2016 Weakness most likely secondary to chronic hypoxia -Continue oxygen management -PT evaluation deferred at this time the patient is currently on BiPAP. BiPAP is being weaned today potential PT start tomorrow Hypertension -Patient is currently stable restart home medications Diabetes -Patient has started eating again, restart home medications -We will continue to monitor Hyperlipidemia -Restart patient's home medication DVT prophylaxis Lovenox GI prophylaxis: Protonix IV Diet -We will start diabetic diet CODE STATUS: Patient is full code Disposition: The patient is currently progressing and his ABG is improving. The patient is now able to eat however he still on 5 L of oxygen nasal cannula. Patient will need to wear the BiPAP at night as this is necessary with intermittent BiPAP usage during the day. He was again patient is a candidate for Trilogy. The patient's oxygen requirements have increased and the patient is still trapping O2. The patient seems to be responding well to BiPAP therapy. We will continue BiPAP until patient returns back to his baseline mentation. Patient will remain nothing by mouth and we will monitor his blood sugars and treat him accordingly with insulin sliding scale. His blood pressure has been stable if it should start to increase we will control that with IV blood pressure medications as well. Because the patient has obesity hypoventilation syndrome and a PCO2 of greater than 50 he should qualify for Trilogy mechanical ventilation. It was noted by respiratory therapy that while the patient was on BiPAP he only had a tidal volume of 200 however when they did a jaw thrust his tidal volume increased to 500. The patient has been requiring nocturnal and daytime volume ventilation at this time and it seems that BiPAP may be insufficient due to the severity of his obesity hypoventilation syndrome. It is felt that the patient would benefit from Trilogy mechanical ventilation as it seems that the obesity hypoventilation syndrome seems to be the major cause of the patient's hypercapnia and chronic respiratory failure. The patient has been improving with BiPAP but Trilogy would most likely be more beneficial for this particular patient due to his obesity hypoventilation syndrome. GI Prophylaxis: Proton Pump Inhibitor VTE Prophylaxis: Sub-Q Enoxaparin VTE Mechanical Devices: Intermittant Pneumatic CD Resuscitation Status: CPR: Attempt Resuscitation Rochelle Seals DO Sep 05, 2016 12:30
--- NOTE | 2016-09-05 19:28 | NUR ---
Resp/neuro SpO2 mid 90s on 5L NC through most of the day, pt tolerating well, stating not SOB at this time. Report given to oncoming RN MD wants pt back on Bibap through the night. Neuro: Pt A&O x3 however woke up disoriented. Pt stating didn't know where he was or why he was here. Reoriented pt, pt verbalized understanding stating "I just needed to wake up". Through the day pt A&O x3.
[2016-09-05] MEDS: Albuterol-Ipratropium 3 mL Inhalation Solution NEB PRN (21:02)
[2016-09-06] VITALS (13 sets, daily range): BP systolic 129–162; BP diastolic 64–86; PULSE 63–79; RESP 16–23; O2SAT 91–98
[2016-09-06 02:56] LABS: Mean Corpuscular Hemoglobin 31.9 pg (27.0-35.0); Mean Corpuscular Volume 102.9 fL (81-100)
--- NOTE | 2016-09-06 04:48 | NUR ---
HR Pt SR 60's. Pt placed onto Bipap for sleep overnight. While sleeping, pt SB in 53-60's. Pt has 3.58 second pause at 0300 and then back to SR 60's. made aware, no order changes at this time.
--- NOTE | 2016-09-06 07:16 | ABG ---
DateTimeAnalyzed 07:09:00 -_ pH ____7.389 - 7.350 7.450 pCO2 ___65.9__ -mmHg 35.0 45.0 pO2 ___75.4__ -mmHg 69.0 116 HCO3- ___38.9__ -mmol/L 22.0 26.0 ABE ___11.7__ -mmol/L -2.0 2.0 tHb ___12.2__ -g/dL O2Hb ___93.5__ -% COHb ____1.5__ -% MetHb ____1.0__ -% sO2 ___95.9__ -% 25.0 FIO2 ___21.0__ -% Drawn By RC - Date/Time Notified____ 07:16:00 -_ Spontaneous_RR ___24.0__ -b/min Liter_Flow ____5.0__ -L/min Oxygen Device 1 __CANNULA - Notified By RC - Notified Whom ___BARNES - B 749 -mmHg tO2 ___16.1__ -Vol% Juan Pablo test N/A -
[2016-09-06] MEDS: Pantoprazole 4 mg/mL 10 mL Inj IVPUSH SCH (07:53)
[2016-09-06] MEDS: metFORMIN ER 500 mg ER24 Tablet PO SCH ×3 (07:56→21:40)
[2016-09-06] MEDS: Insulin GLARgine 100 Unit/mL Syringe SUBQ SCH (07:58)
--- NOTE | 2016-09-06 16:01 | PCM.PNMED ---
Subjective Date of Service Sep 06, 2016 Subjective Patient was examined at bedside today. Patient denies any chest pain, nausea, vomiting, diarrhea. Patient is currently satting well on 5 L of oxygen. Patient states that he was able to tolerate the BiPAP machine last night and was able to tolerate his food. Exam Vital Signs Vital Sign - Last Date Time Temp Pulse Resp B/P Pulse Ox O2 Delivery O2 Flow Rate FiO2 09/06/16 15:39 37.0 76 20 152/73 95 Nasal Cannula 4.00 09/06/16 00:23 50 Intake and Output 09/05/16 09/05/16 09/06/16 Cumulative From/Thru 15:00 23:00 07:00 09/02/16 11:34 - 09/06/16 04:25 Intake Total 450 ml 1699 ml Output Total 800 ml 250 ml 5075 ml Balance -350 ml -250 ml -3376 ml Intake Oral 450 ml 1699 ml Output Urine Total 800 ml 250 ml 5075 ml # Voids 1 # Bowel Movements 0 0 Exam Physical Exam: GEN: Patient was awake, alert, responding appropriately to questions HEENT: PERRLA, EOMI, Neck soft supple, trachea midline, nomocephalic/atraumatic CV: +S1/S2, RRR, systolic murmurs auscultated Respiratory: CTAB, no wheezes, rales, rhonchi GI: +bowel sounds x4, soft, compressible, non TTP EXT: no c/c +1 pitting edema improved from yesterday Neuro: CN II-XII grossly intact Psych: mood and affect were appropriate IVs and Medications Medications Reviewed: Medications were reviewed in detail Lab and Diagnostics Result Diagram: 09/06/1623909/06/16 024 Cardiac Echo Impressions [address] [address] Echocardiogram Report Name: ABBY BRAVO Torsten Da te: 09/04/2016 Height: 6 9 in Hospital Exam Location: [facility] Weight: 2 43 lb Gender: Male BSA: 2.2 m2 : 1940 Age: 76 yrs BP: 170/7 5 mmHg Reason For Study: ELEVATED BNP History: Situs inversus, COPD, HTN, Diabetes Ordering Physician: HOSPITALIST [facility] Performed By: Kayla Iglesias Referring Physician: Dr. Nicholas Boggs Interpretation Summary Technically difficult study. The patient has Situs Inversus. Borderline concentric left ventricular hypertrophy with ejection fraction 60- 65%. Mild aortic valve sclerosis. Mild tricuspid regurgitation. Right ventricular systolic pressure is estimated to be 32 mmHg plus the clinically estimated CVP which cannot be estimated on this exam. Comparison is made with the echocardiogram of 07/16/2015, there has been no significant change. Assessment & Plan 76 year old male who presents with a complaint of shortness of breath and weakness secondary to hypoxia Acute respiratory on chronic respiratory failure and hypoxia with hypercapnia secondary to obesity hypoventilation syndrome -Patient is to be placed on oxygen during the day and BiPAP at night. -Begin to wean the patient's oxygen needs. -Continue to monitor -Sleep study as an outpatient -Respiratory therapy has been consulted for assistance with BiPAP management and possible home O2 usage (Trilogy mechanical ventilation Patient's PCO2 levels 102) -Continue Telemetry Elevated BNP -Echo results unchanged from previous echo 07/18/2016 Weakness most likely secondary to chronic hypoxia -Continue oxygen management. Patient should be on oxygen during the day and BiPAP at night. We will continue to wean the patient from oxygen. -PT evaluation deferred at this time the patient is currently on BiPAP. Hypertension -Patient is currently stable restart home medications Diabetes -Patient has started eating again, restart home medications -We will continue to monitor Hyperlipidemia -Restart patient's home medication DVT prophylaxis Lovenox GI prophylaxis: Protonix IV Diet -We will start diabetic diet CODE STATUS: Patient is full code Disposition: The patient is currently progressing well. The patient did well on BiPAP at night. Patient will be trialed with oxygen during the day and BiPAP at night. We will continue to wean the patient's oxygen needs during the day. Physical therapy has been consulted and should be working with the patient. The patient does show some signs of deconditioning and may need a half-way facility upon discharge. However the patient would prefer to go home. It is possible that as the patient's oxygen needs decreased he will also start to regain his strength and maybe be able to go home with home PT. The patient's oxygen requirements have increased and the patient is still trapping O2. The patient seems to be responding well to BiPAP therapy. We will continue BiPAP until patient returns back to his baseline mentation. Patient will remain nothing by mouth and we will monitor his blood sugars and treat him accordingly with insulin sliding scale. His blood pressure has been stable if it should start to increase we will control that with IV blood pressure medications as well. Because the patient has obesity hypoventilation syndrome and a PCO2 of greater than 50 he should qualify for Trilogy mechanical ventilation. It was noted by respiratory therapy that while the patient was on BiPAP he only had a tidal volume of 200 however when they did a jaw thrust his tidal volume increased to 500. The patient has been requiring nocturnal and daytime volume ventilation at this time and it seems that BiPAP may be insufficient due to the severity of his obesity hypoventilation syndrome. It is felt that the patient would benefit from Trilogy mechanical ventilation as it seems that the obesity hypoventilation syndrome seems to be the major cause of the patient's hypercapnia and chronic respiratory failure. The patient has been improving with BiPAP but Trilogy would most likely be more beneficial for this particular patient due to his obesity hypoventilation syndrome. GI Prophylaxis: Proton Pump Inhibitor VTE Prophylaxis: Sub-Q Enoxaparin VTE Mechanical Devices: Intermittant Pneumatic CD Resuscitation Status: CPR: Attempt Resuscitation Time spent Greater than 35 minutes Rochelle Seals DO Sep 06, 2016 16:01
--- NOTE | 2016-09-06 17:41 | NUR ---
Pt. Trilogy Set up with [facility] Bashir Segura, SPARK PLUG TESTER, Respiratory Therapist. Contact information [phone]. Pt. tolerating mask and Trilogy well. Pt. has 5 lpm bleedin O2, Sats 91-92%. Estimated Vt for Pt. set at 550. Pt. 5'9" tall and set for apx. 8cc/kg. Pt. states very comfortable on settings. Family at bedside for instruct. No questions at this time.
--- NOTE | 2016-09-06 17:56 | NUR ---
Oliveros/O2 Pt's oliveros catheter removed per Pt request this afternoon, Pt reports being able to spontaneously void without issue since catheter removal. Pt on 5L O2 via nasal cannula with SPO2 sat of 95% at beginning of shift, Pt's O2 decreased to 3L and SPO2 sats slowly decreased to 89-91%, O2 bumped up to 4L and SPO2 sats maintaining in the low 90s. Pt set up with trilogy today, Pt's SPO2 sats 89-92% on trilogy, Pt denied SOB and reported new machine to be comfortable, paged who instructed to keep SPO2 sats >90%. Upon returning to Pt's room, Pt had transitioned self back to nasal cannula in order to eat dinner, Pt verbalized that he will trial again after dinner.
[2016-09-07] VITALS (9 sets, daily range): BP systolic 136–164; BP diastolic 62–82; PULSE 61–73; RESP 16–20; O2SAT 91–96
[2016-09-07 03:47] LABS: Mean Corpuscular Hemoglobin 31.6 pg (27.0-35.0); Mean Corpuscular Volume 100.8 fL (81-100)
--- NOTE | 2016-09-07 05:44 | NUR ---
SpO2/Rest Pt kept appearing to desat during the shift manager into the low 80s but when RT would check the pt's SpO2 with their finger pulse ox the pt's SpO2 would be 91%. Pt's pulse ox probe was first changed from one finger probe to a new finger probe and this did not resolve the pt's low SpO2 readings. Pt's pulse ox probe was then changed to a toe probe. RT has continue to monitor pt's SpO2 throughout the shift manager. Pt's trilogy O2 bleed-in was initially 4L but RT increased the O2 bleed-in to 6L since the pt began to desat again r/t poor body alignment this time. Pt was able to sleep through most of the shift manager with very few disturbances.
--- NOTE | 2016-09-07 06:32 | ABG ---
DateTimeAnalyzed 06:27:00 -_ pH ____7.463 - 7.350 7.450 pCO2 ___51.1__ -mmHg 35.0 45.0 pO2 ___59.9__ -mmHg 69.0 116 HCO3- ___36.1__ -mmol/L 22.0 26.0 ABE ___10.8__ -mmol/L -2.0 2.0 tHb ___12.5__ -g/dL O2Hb ___90.3__ -% COHb ____1.7__ -% MetHb ____0.9__ -% sO2 ___92.7__ -% 25.0 FIO2 ___21.0__ -% Drawn By MD - Date/Time Notified____ 06:32:00 -_ Liter_Flow ____6.0__ -L/min Oxygen Device 1 __TRILOGY - Notified By MD - Notified Whom RN - B 746 -mmHg tO2 ___15.9__ -Vol% Juan Pablo test _Positive -
[2016-09-07] MEDS: metFORMIN ER 500 mg ER24 Tablet PO SCH ×3 (08:25→21:31)
[2016-09-07] MEDS: Pantoprazole 4 mg/mL 10 mL Inj IVPUSH SCH (08:25)
[2016-09-07] MEDS: Insulin GLARgine 100 Unit/mL Syringe SUBQ SCH (08:36)
--- NOTE | 2016-09-07 13:19 | PCM.PNMED ---
Subjective Date of Service Sep 07, 2016 Subjective Patient was examined at bedside today. Patient denies any chest pain, nausea, vomiting, diarrhea. Patient states that he is not having any shortness of breath while on oxygen however the patient still has been using oxygen supplementation. The patient was placed on Triology last night and seemed to do well with this. Exam Vital Signs Vital Sign - Last Date Time Temp Pulse Resp B/P Pulse Ox O2 Delivery O2 Flow Rate FiO2 09/07/16 12:27 72 16 142/73 95 Nasal Cannula 2.00 09/07/16 08:18 37.4 09/06/16 00:23 50 Intake and Output 09/06/16 09/06/16 09/07/16 Cumulative From/Thru 15:00 23:00 07:00 09/02/16 11:34 - 09/07/16 04:41 Intake Total 440 ml 240 ml 2379 ml Output Total 400 ml 450 ml 5925 ml Balance 40 ml -210 ml -3546 ml Intake Oral 440 ml 240 ml 2379 ml Output Urine Total 400 ml 450 ml 5925 ml # Voids 1 2 # Bowel Movements 0 Exam Physical Exam: GEN: Patient was awake, alert, responding appropriately to questions HEENT: PERRLA, EOMI, Neck soft supple, trachea midline, nomocephalic/atraumatic CV: +S1/S2, RRR, systolic murmurs auscultated Respiratory: CTAB, no wheezes, rales, rhonchi GI: +bowel sounds x4, soft, compressible, non TTP EXT: no c/c/+1 pitting edema bilaterally Neuro: CN II-XII grossly intact Psych: mood and affect were appropriate IVs and Medications Medications Reviewed: Medications were reviewed in detail Medications Current Medications Furosemide 20 mg DAILY PO Last administered on 09/07/16t 10:54; Admin Dose 20 MG ; Start 09/07/16 at 08:30 Lab and Diagnostics Result Diagram: 09/07/16 0250 09/07/16 0250 Cardiac Echo Impressions [address] [address] Echocardiogram Report Name: ABBY BRAVO DStudy Da te: 09/04/2016 Height: 6 9 in Hospital Exam Location: [facility] Weight: 2 43 lb Gender: Male BSA: 2.2 m2 : 1940 Age: 76 yrs BP: 170/7 5 mmHg Reason For Study: ELEVATED BNP History: Situs inversus, COPD, HTN, Diabetes Ordering Physician: ALICIA PATEL Performed By: Kayla Iglesias Referring Physician: Dr. Nicholas Boggs Interpretation Summary Technically difficult study. The patient has Situs Inversus. Borderline concentric left ventricular hypertrophy with ejection fraction 60- 65%. Mild aortic valve sclerosis. Mild tricuspid regurgitation. Right ventricular systolic pressure is estimated to be 32 mmHg plus the clinically estimated CVP which cannot be estimated on this exam. Comparison is made with the echocardiogram of 07/16/2015, there has been no significant change. Assessment & Plan 76 year old male who presents with a complaint of shortness of breath and weakness secondary to hypoxia Acute respiratory on chronic respiratory failure and hypoxia with hypercapnia secondary to obesity hypoventilation syndrome -Patient is to be placed on oxygen during the day and Trilogy at night. -Continue to wean the patient's oxygen needs. -Continue to monitor -Sleep study as an outpatient -Continue Telemetry Elevated BNP -Echo results unchanged from previous echo 07/18/2016 -Start Lasix 20 mg by mouth daily Weakness most likely secondary to chronic hypoxia -Continue oxygen management. Patient should be on oxygen during the day and Trilogy at night. We will continue to wean the patient from oxygen. -Physical therapy for deconditioning Hypertension -Patient is currently stable restart home medications Diabetes -Patient has started eating again, restart home medications -We will continue to monitor Hyperlipidemia -Restart patient's home medication DVT prophylaxis Lovenox GI prophylaxis: Protonix IV Diet -We will start diabetic diet CODE STATUS: Patient is full code Disposition: The patient is currently progressing well. The patient seems to be responding well to the use of Trilogy at night. Patient should continue to use the oxygen until successfully weaned down. It is the patient's goal to go home with home health and not on oxygen. The patient should continue to be weaned however case management and respiratory therapy should also check to ensure that the patient's home oxygen machine which she has been supposed to be using at nighttime does in fact have oxygen. The patient is progressing well and is now starting to eat which is patent physical therapy if he does well over the weekend the patient could be discharged either home with home health or to a intermediate facility on Friday or Friday. The patient presented to the emergency room with a complaint of shortness of breath. The patient was supposed to be using oxygen 2 L at nighttime while sleeping. However the patient decided to stop using his oxygen at night in order to prepare himself and go "natural" for his sleep study which is scheduled for September 20. The patient upon admission needed 3 L of oxygen in order to maintain his oxygen saturations. However overnight it was noted that the patient was becoming more somnolent and an ABG was performed and found that the patient's was acidotic and his PCO2 was over 100. The patient was immediately placed on BiPAP and seemed to respond well to this and his PCO2 to decrease into the low 90s. It was found that the patient tidal volume was decreased secondary to the patient's body habitus and it was noted that the patient was suffering from obesity hypoventilation syndrome as his tidal volumes went from 200-500 with just a simple jaw thrust. It was decided that the patient should then be transitioned to a Trilogy mechanical ventilation system. The patient has been doing well with the Trilogy mechanical ventilation system and should continue to use this machine at home for sleeping. Patient's ABGs have been steadily improving. The patient's pH today was 7.46, PCO2 was 51.1, PO2 was 59.9, bicarbonate was 36.1. This seems to be about the patient's baseline. The patient is currently progressing well. The patient did well on BiPAP at night. Patient will be trialed with oxygen during the day and BiPAP at night. We will continue to wean the patient's oxygen needs during the day. Physical therapy has been consulted and should be working with the patient. The patient does show some signs of deconditioning and may need a intermediate facility upon discharge. However the patient would prefer to go home. It is possible that as the patient's oxygen needs decreased he will also start to regain his strength and maybe be able to go home with home PT. GI Prophylaxis: Proton Pump Inhibitor VTE Prophylaxis: Sub-Q Enoxaparin VTE Mechanical Devices: Intermittant Pneumatic CD Resuscitation Status: CPR: Attempt Resuscitation Rochelle Seals DO Sep 07, 2016 13:19
--- NOTE | 2016-09-07 18:47 | NUR ---
O2 Pt on 4L via nasal cannula with SPO2 sats in the mid-upper 90s at beginning of shift, O2 decreased to 2L and SPO2 sats remained in the low 90s, Pt denied increase in SOB with lower O2 levels. Pt able to ambulate in the hallway on 3L with PT today, see PT note for more details.
[2016-09-08] VITALS (8 sets, daily range): BP systolic 117–166; BP diastolic 69–90; PULSE 67–74; RESP 16–18; O2SAT 94–97
[2016-09-08 03:43] LABS: Mean Corpuscular Volume 98.5 fL (81-100)
--- NOTE | 2016-09-08 04:22 | NUR ---
transferr patient tranfered to room 3007. placed on trilogy 6 liters nc. 93% bedside pulse oximetry.
[2016-09-08] MEDS: metFORMIN ER 500 mg ER24 Tablet PO SCH (07:56)
[2016-09-08] MEDS: Pantoprazole 4 mg/mL 10 mL Inj IVPUSH SCH (07:58)
[2016-09-08] MEDS: Insulin GLARgine 100 Unit/mL Syringe SUBQ SCH (07:58)
--- NOTE | 2016-09-08 11:02 | NUR ---
Social Work: Continued d/c planning Data: Pt is on day 6 of hospitalization. EMR reviewed, pt discussed in rounds. PT recommending home with HH. GRAPHIC ART SALES REPRESENTATIVE met with pt and family at bedside and explained recommendations. Family and pt happy about this and expecting Signature JIHAN, RN/PT. F2F in GRAPHIC ART SALES REPRESENTATIVE folder. GRAPHIC ART SALES REPRESENTATIVE will continue to follow. Assessment: Pt who is independent at baseline. Plan: Pt will d/c home via POV with family with Signature JIHAN, RN/PT. GRAPHIC ART SALES REPRESENTATIVE will continue to follow. SIMA Ramirez
--- NOTE | 2016-09-08 14:26 | PCM.PNMED ---
Subjective Date of Service Sep 08, 2016 Subjective denies any new issues/complaints. continued SOB Exam Vital Signs Vital Sign - Last Date Time Temp Pulse Resp B/P Pulse Ox O2 Delivery O2 Flow Rate FiO2 09/08/16 13:27 36.8 68 18 117/69 97 Nasal Cannula 2.50 09/06/16 00:23 50 Intake and Output 09/07/16 09/07/16 09/08/16 Cumulative From/Thru 15:00 23:00 07:00 09/02/16 11:34 - 09/08/16 06:59 Intake Total 940 ml 386 ml 3705 ml Output Total 1550 ml 1540 ml 9015 ml Balance -610 ml -1154 ml -5310 ml Intake Oral 940 ml 386 ml 3705 ml Output Urine Total 1550 ml 1540 ml 9015 ml # Voids 1 3 # Bowel Movements 0 General: Alert, Cooperative, No Acute Distress Eyes: Scleral Anicteric Mouth: Mucous Membr Moist/Mallory Neck: Supple Chest & Lungs: Chest Wall Normal, Expiratory wheezes (mild bilateral) Cardiovascular: Regular Rate/Rhythm Abdomen: Non-tender, Non-distended, Normoactive bowel tones, Soft Extremities: No cyanosis/clubbing/edma bilat Neurological: Grossly Neurologically Intact, Normal Speech IVs and Medications Medications Reviewed: Medications were reviewed in detail Lab and Diagnostics Result Diagram: 09/08/1633409/08/16334 [place] [address] Echocardiogram Report Name: ABBY BRAVO Torsten Da te: 09/04/2016 Height: 6 9 in Hospital Exam Location: [facility] Weight: 2 43 lb Gender: Male BSA: 2.2 m2 : 1940 Age: 76 yrs BP: 170/7 5 mmHg Reason For Study: ELEVATED BNP History: Situs inversus, COPD, HTN, Diabetes Ordering Physician: HOSPITALIST [facility] Performed By: Kayla Iglesias Referring Physician: Dr. Nicholas Boggs Interpretation Summary Technically difficult study. The patient has Situs Inversus. Borderline concentric left ventricular hypertrophy with ejection fraction 60- 65%. Mild aortic valve sclerosis. Mild tricuspid regurgitation. Right ventricular systolic pressure is estimated to be 32 mmHg plus the clinically estimated CVP which cannot be estimated on this exam. Comparison is made with the echocardiogram of 07/16/2015, there has been no significant change. Assessment & Plan 76 year old male with history of DM, HTN, presumed HARRISON (not diagnosed with a sleep study) and presumed COPD (without PFT study) who reportedly had been on supplemental oxygen for the past year due to persisting hypoxia on room air presents with a complaint of shortness of breath and weakness after he took himself off of supplemental O2 about 3 days prior to presentation. # Acute on possible chronic hypercapnic and possible hypoxic respiratory failure , poa. - He has been placed on oxygen during the day and Trilogy at night during this hospitalization - unclear exact etiology for his respiratory issues. - Echo unremarkable - pulmonology consulted today. will f/u w/ recs regarding possible further studies and treatment # Elevated BNP. mild. poa - Echo results unchanged from previous echo 07/18/2016 - Stop PO Lasix started on 09/07 # Generalized Weakness, acute on chronic. poa - ? if secondary to underlying pulmonary issues - PT consult - f/u # Chronic Hypertension. stable - c/w home medications # Diabetes - check HgA1C - c/w home meds - start ISS # Hyperlipidemia. chronic - c/w statin Dispo: 2-3 days pending improved respiratory status. GI Prophylaxis: Proton Pump Inhibitor VTE Prophylaxis: Sub-Q Enoxaparin VTE Mechanical Devices: Intermittant Pneumatic CD Resuscitation Status: CPR: Attempt Resuscitation Time spent 35 min Angelo Garcia Sep 08, 2016 14:25
--- NOTE | 2016-09-08 14:33 | NUR ---
02 Pt on 3.5L via NC at beginning of shift, pt sats mid-high 90's and he denies any SOB. 02 turned down to 2.5L at 0745 and pt tolerated well. Pt's 02 turned down to 2L at 1030. Pt did ambulate to BR with [address], 02 reading at 70% although pt denied any SOB. He was displaying exertional dyspnea. PT in this afternoon, amb with pt on 2L and he maintained above 90%. Currently 2L via NC, sats 94-95%. CPOX remains in place.
[2016-09-08] MEDS: Insulin Human REGular 300 Unit/3 mL Inj SUBQ SCH ×2 (17:37→22:37)
--- NOTE | 2016-09-08 17:50 | CONS ---
[address] [address] CONSULTATION REPORT PATIENT: ABBY BRAVO : 1940 MR#: [id number] ADMIT: 09/02/2016 JOB ID: [id number] DATE OF SERVICE: 09/08/2016 PULMONARY CONSULTATION NOTE DATE OF PROCEDURE: 09/08/2016 CHIEF COMPLAINT: The patient is a 76-year-old man seen in consultation at the request of Dr. Garcia for hypoxic respiratory failure. HISTORY OF PRESENT ILLNESS: The patient is a 76-year-old man who has been on oxygen for about a year since July 2015 and was supposed to have a sleep study next week. He took himself off oxygen in July and had noticed slowly progressive shortness of breath and generalized weakness over a few weeks following that. He said he had a home oximeter any he checked the saturations and there were 70%, so he came into the emergency department. Of note, on asking, he says he has also had significant lower extremity edema that is a chronic issue. He thinks he might have gained about 20 pounds in the last 3-6 months as well. Denies any cough, sputum, chest pain, abdominal pain. PAST MEDICAL HISTORY: 1. Type 2 diabetes. 2. Hypertension. 3. Hyperlipidemia. 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 FAMILY HISTORY: He says both his father and his sister had lung disease secondary to smoking. SOCIAL HISTORY: He smoked for about 20 years at 1-1/2 packs a day and quit smoking in the 1970s. 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 REVIEW OF SYSTEMS: Positive for shortness of breath, lower extremity edema, weight gain, negative for fever, chills, chest pain, nausea, vomiting, abdominal pain, skin rashes, joint pain, dizziness or lightheadedness, headache. Essentially a full 10 point review of systems is negative except as mentioned above. PHYSICAL EXAMINATION: Vital signs reviewed. Temperature 36.8, pulse 68, respirations 18, BP 117/69, sats 97% on 2.5 L nasal cannula. General: Morbidly obese, gentleman, sitting in bed. Alert and oriented. In no distress. Neck: No cervical lymphadenopathy. HEENT: Oral mucosa is moist. No ulcers or thrush. Chest: Clear to auscultation anteriorly but posteriorly he has crackles at both bases. Heart: Heart sounds are on the right side of the sternum and sound normal. Abdomen nontender. Extremities: He does have bilateral 2+ lower extremity edema. No joint swelling or clubbing. Skin: No rashes. LABORATORIES: Reviewed. CBC is normal. Chemistry reviewed and creatinine is 0.7, serum bicarbonate is 31. Chest x-ray shows chronically elevated left hemidiaphragm and evidence of situs inversus with heart border on the right. Arterial blood gas last checked on September 07 shows pH of 7.46, pCO2 of 51, pO2 of 59, bicarb of 36. ASSESSMENT AND RECOMMENDATIONS: 1. Acute on chronic hypoxic hypercarbic respiratory failure. 2. Obesity hypoventilation syndrome. 3. Chronic left hemidiaphragmatic palsy. This 76-year-old man with chronic hypoxia also shows evidence of chronic hypercarbic respiratory failure that is compensated. He has situs inversus but without any other known associated complications to suggest that he has bronchiectasis or other unusual syndromes. He does have a chronically elevated left hemidiaphragm but no obvious history of surgical procedures that would precipitate a hemidiaphragmatic palsy. I suspect his hypoxemia is due to a combination of obesity, hypoventilation and chronically elevated left hemidiaphragm. With his obesity causing restrictive lung disease. His smoking history may have also contributed emphysema/COPD, although we do not have any PFTs on him. Despite these multiple causes for having hypoxemia, if we were looking to be sore on complete a full evaluation, I would recommend doing a CT pulmonary angiogram to rule out both PE and interstitial lung disease as possible etiologies as well. Once we have the PE results, if they rule out other etiologies, then I would recommend trying diuresis if you have not already done so with IV Lasix to try to get some weight and volume off as tolerated. Would recommend watching his kidney function closely while trying IV diuretics as well as his weight. I am hoping that with getting his L and I lower extremity edema and weight gain. Improved a little bit. This may even help with his oxygenation. I noted the Trilogy has been arranged for nocturnal use and I agree with this. I explained to the patient that he needs to use oxygen during the day and Trilogy at night with oxygen open and he understands. Dr. Vines is taking over the pulmonary service tomorrow, but if the CAT scan is unrevealing, pulmonary service will sign off. Please contact us for any further issues.
--- NOTE | 2016-09-08 22:09 | DRSVH ---
PROCEDURE: CT ANGIO CHEST PULMONARY EMBOLISM ([id number]) INDICATIONS: 76 year-old male with shortness of breath and hypoxia. TECHNIQUE: After the administration of intravenous contrast, 2 mm thick sections acquired from the pulmonary api gail to the posterior costophrenic angles. 3-dimensional maximum intensity projection (MIP) coronal a nd sagittal reformats were then acquired through the thorax. For radiation dose reduction, the follo wing was used: automated exposure control, adjustment of mA and/or kV according to patient size. COMPARISON: [facility], CR, XR CHEST 1VW (PORTABLE), 09/02/2016, 13:06. FINDINGS: Image quality: Excellent. Pulmonary arteries: Pulmonary arteries demonstrate no intraluminal filling defects to suggest centra l pulmonary embolism. Main pulmonary artery is prominent in caliber at 3.7 cm diameter. Lungs and pleura: Lungs are clear, except for left lung base atelectasis. There is trace dependent l eft pleural effusion. No pneumothorax. Central and peripheral airways are patent. Mediastinum: There is rightward deviation of the heart from left hemidiaphragm elevation. Heart size is normal, without pericardial effusion. No mediastinal or hilar adenopathy. Thoracic aorta is nor mal in caliber and enhancement. Esophagus is normal in caliber, without hiatal hernia. Bones and chest wall: There is asymmetric left hemidiaphragm elevation as before. No suspicious bony lesions. There is mid and lower thoracic spine disc degeneration. Thyroid gland is normal in size. No axillary or supraclavicular adenopathy. Abdomen: Visualized upper abdominal solid organs appear normal in the early arterial phase of enhanc ement. Patient is status post gastric banding surgery. IMPRESSION: 1. No evidence for central pulmonary embolism. Prominent main pulmonary artery would be consistent wi th background pulmonary arterial hypertension. 2. Left hemidiaphragm elevation causes left lung base atelectasis as well as right deviation of the h eart, and may reflect chronic left phrenic nerve dysfunction. Dictated by: Walker Trinh M.D. on 09/08/2016 at 22:00 Approved by: Walker Trinh M.D. on 09/08/2016 at 22:08
[2016-09-09] VITALS (8 sets, daily range): BP systolic 143–163; BP diastolic 67–88; PULSE 58–87; RESP 18–20; O2SAT 89–97
--- NOTE | 2016-09-09 04:47 | NUR ---
Sleep O2 Pt has been on Trilogy while sleeping, there have been frequent episodes of hypoxia, saturations in the 70s. RT has been here frequently to adjust trilogy settings with good success. Patient has progressively been having better saturations while asleep.
[2016-09-09] MEDS: Insulin Human REGular 300 Unit/3 mL Inj SUBQ SCH ×4 (07:30→21:58)
[2016-09-09] MEDS: Pantoprazole 4 mg/mL 10 mL Inj IVPUSH SCH (08:05)
[2016-09-09] MEDS: Insulin GLARgine 100 Unit/mL Syringe SUBQ SCH (08:07)
--- NOTE | 2016-09-09 14:53 | PCM.PNMED ---
Subjective Date of Service Sep 09, 2016 Subjective denies any new issues/complaints. continued SOB Exam Vital Signs Vital Sign - Last Date Time Temp Pulse Resp B/P Pulse Ox O2 Delivery O2 Flow Rate FiO2 09/09/16 14:13 36.9 71 20 145/88 94 Nasal Cannula 2.50 09/06/16 00:23 50 Intake and Output 09/08/16 09/08/16 09/09/16 Cumulative From/Thru 15:00 23:00 07:00 09/02/16 11:34 - 09/08/16 22:38 Intake Total 1009 ml 4714 ml Output Total 1365 ml 66658 ml Balance -356 ml -5666 ml Intake Oral 1009 ml 4714 ml Output Urine Total 1365 ml 21671 ml # Voids 3 # Bowel Movements 1 1 Exam General: Alert, Cooperative, No Acute Distress Eyes: Scleral Anicteric Mouth: Mucous Membr Moist/[place] Neck: Supple Chest & Lungs: Chest Wall Normal, Expiratory wheezes (mild bilateral) Cardiovascular: Regular Rate/Rhythm Abdomen: Non-tender, Non-distended, Normoactive bowel tones, Soft Extremities: No cyanosis/clubbing. 2+ pitting edema in LE bilat Neurological: Grossly Neurologically Intact, Normal Speech IVs and Medications Medications Reviewed: Medications were reviewed in detail Lab and Diagnostics Result Diagram: 09/08/16 0335 09/09/16 0906 Cardiac Echo Impressions [address] [address] Echocardiogram Report Name: ABBY BRAVO DStudy Da te: 09/04/2016 Height: 6 9 in Hospital Exam Location: [facility] Weight: 2 43 lb Gender: Male BSA: 2.2 m2 : 1940 Age: 76 yrs BP: 170/7 5 mmHg Reason For Study: ELEVATED BNP History: Situs inversus, COPD, HTN, Diabetes Ordering Physician: HOSPITALIST [facility] Performed By: Kayla Iglesias Referring Physician: Dr. Nicholas Boggs Interpretation Summary Technically difficult study. The patient has Situs Inversus. Borderline concentric left ventricular hypertrophy with ejection fraction 60- 65%. Mild aortic valve sclerosis. Mild tricuspid regurgitation. Right ventricular systolic pressure is estimated to be 32 mmHg plus the clinically estimated CVP which cannot be estimated on this exam. Comparison is made with the echocardiogram of 07/16/2015, there has been no significant change. Assessment & Plan 76 year old male with history of DM, HTN, presumed HARRISON (not diagnosed with a sleep study) and presumed COPD (without PFT study) who reportedly had been on supplemental oxygen for the past year due to persisting hypoxia on room air presents with a complaint of shortness of breath and weakness after he took himself off of supplemental O2 about 3 days prior to presentation. # Acute on chronic hypoxic hypercarbic respiratory failure. present on admission. improving - likely due to obesity hypoventilation syndrome and chronic left hemidiaphragmatic palsy. - He has been placed on oxygen during the day and Trilogy at night during this hospitalization - Echo unremarkable - CTA chest negative for PE - appreciate pulmonology consult. will f/u w/ recs # Possible acute on chronic diastolic heart failure, present on admission - Echo showing EF 60-65% and results unchanged from previous echo 07/18/2016 - will start trial of IV Lasix today given ongoing bilateral LE edema and possible pulmonary arterial hypertension (noted on CTA chest) # Generalized Weakness, acute on chronic. poa - ? if secondary to underlying pulmonary issues - PT consult - f/u # Chronic Hypertension. stable - c/w home medications # Diabetes - f/u HgA1C - c/w home insulin - hold Metformin fo now - start ISS # Hyperlipidemia. chronic - c/w statin Dispo: 2-3 days pending improved respiratory status. GI Prophylaxis: Proton Pump Inhibitor VTE Prophylaxis: Sub-Q Enoxaparin VTE Mechanical Devices: Intermittant Pneumatic CD Resuscitation Status: CPR: Attempt Resuscitation Time spent 35 min Angelo Garcia Sep 09, 2016 14:53
[2016-09-09] MEDS ORDERED: Furosemide 10 mg/mL 2 mL Inj IVPUSH SCH (14:55)
[2016-09-10] VITALS (8 sets, daily range): BP systolic 135–153; BP diastolic 69–84; PULSE 63–81; RESP 18; O2SAT 95–97
[2016-09-10] MEDS: Insulin Human REGular 300 Unit/3 mL Inj SUBQ SCH ×4 (08:00→21:18)
[2016-09-10] MEDS: Insulin GLARgine 100 Unit/mL Syringe SUBQ SCH (08:00)
[2016-09-10] MEDS: Pantoprazole 4 mg/mL 10 mL Inj IVPUSH SCH (08:03)
[2016-09-10] MEDS ORDERED: Furosemide 10 mg/mL 2 mL Inj IVPUSH SCH (08:30)
[2016-09-10] MEDS: Furosemide 10 mg/mL 4 mL Inj IVPUSH SCH (10:01)
--- NOTE | 2016-09-10 14:31 | PCM.PNMED ---
Subjective Date of Service Sep 10, 2016 Subjective denies any new issues/complaints. continued SOB Exam Vital Signs Vital Sign - Last Date Time Temp Pulse Resp B/P Pulse Ox O2 Delivery O2 Flow Rate FiO2 09/10/16 10:57 65 09/10/16 10:05 Supplement Oxygen 09/10/16 09:42 36.5 18 146/69 96 4.00 09/06/16 00:23 50 Intake and Output 09/09/16 09/09/16 09/10/16 Cumulative From/Thru 15:00 23:00 07:00 09/02/16 11:34 - 09/10/16 06:45 Intake Total 600 ml 908 ml 300 ml 6522 ml Output Total 800 ml 1400 ml 650 ml 91348 ml Balance -200 ml -492 ml -350 ml -6708 ml Intake Oral 600 ml 908 ml 300 ml 6522 ml Output Urine Total 800 ml 1400 ml 650 ml 25396 ml # Voids 3 # Bowel Movements 1 Exam General: Alert, Cooperative, No Acute Distress Eyes: Scleral Anicteric Mouth: Mucous Membr Moist/[place] Neck: Supple Chest & Lungs: Chest Wall Normal, Expiratory wheezes (mild bilateral) Cardiovascular: Regular Rate/Rhythm Abdomen: Non-tender, Non-distended, Normoactive bowel tones, Soft Extremities: No cyanosis/clubbing. 2+ pitting edema in LE bilat Neurological: Grossly Neurologically Intact, Normal Speech IVs and Medications Medications Reviewed: Medications were reviewed in detail Lab and Diagnostics Result Diagram: 09/08/16 0335 09/10/16 0804 Cardiac [place] [address] Echocardiogram Report Name: ABBY BRAVOramiromadison Da te: 09/04/2016 Height: 6 9 in Hospital Exam Location: [facility] Weight: 2 43 lb Gender: Male BSA: 2.2 m2 : 1940 Age: 76 yrs BP: 170/7 5 mmHg Reason For Study: ELEVATED BNP History: Situs inversus, COPD, HTN, Diabetes Ordering Physician: HOSPITALIST [facility] Performed By: Kayla Iglesias Referring Physician: Dr. Nicholas Boggs Interpretation Summary Technically difficult study. The patient has Situs Inversus. Borderline concentric left ventricular hypertrophy with ejection fraction 60- 65%. Mild aortic valve sclerosis. Mild tricuspid regurgitation. Right ventricular systolic pressure is estimated to be 32 mmHg plus the clinically estimated CVP which cannot be estimated on this exam. Comparison is made with the echocardiogram of 07/16/2015, there has been no significant change. Assessment & Plan 76 year old male with history of DM, HTN, presumed HARRISON (not diagnosed with a sleep study) and presumed COPD (without PFT study) who reportedly had been on supplemental oxygen for the past year due to persisting hypoxia on room air presents with a complaint of shortness of breath and weakness after he took himself off of supplemental O2 about 3 days prior to presentation. # Acute on chronic hypoxic hypercarbic respiratory failure. present on admission. improving - likely due to obesity hypoventilation syndrome and chronic left hemidiaphragmatic palsy. - He has been placed on oxygen during the day and Trilogy at night during this hospitalization - Echo unremarkable - CTA chest negative for PE - appreciate pulmonology consult. will f/u w/ recs # Possible acute on chronic diastolic heart failure with bilateral LE edema and possible pulmonary arterial hypertension (noted on CTA chest), present on admission - Echo showing EF 60-65% and results unchanged from previous echo 07/18/2016 - c/w IV Lasix and increase from 20 to 40mg daily # Generalized Weakness, acute on chronic. poa - ? if secondary to underlying pulmonary issues - PT consult - f/u # Chronic Hypertension. stable - c/w home medications # Diabetes - f/u HgA1C - c/w home insulin - hold Metformin fo now - start ISS # Hyperlipidemia. chronic - c/w statin Dispo: 2-3 days pending improved respiratory status and further diuresis GI Prophylaxis: Proton Pump Inhibitor VTE Prophylaxis: Sub-Q Enoxaparin VTE Mechanical Devices: Intermittant Pneumatic CD Resuscitation Status: CPR: Attempt Resuscitation Time spent 30 min Angelo Garcia Sep 10, 2016 14:31
--- NOTE | 2016-09-10 18:38 | NUR ---
02 Pt remains on CPOX with 02 sats in high 90's while at rest and with activity. He remains on 2L via NC. Pt does have some exertional dyspnea, resolves with rest and pt denies SOB. Care is ongoing.
--- NOTE | 2016-09-10 21:30 | NUR ---
blood glucose Pts glucose level was 231 at nightly check. Pt was A&Ox4 and responded to questions appropriately. Notified RN of pt's glucose level. Administered 2 units of insulin per pt's sliding scale. RN will continue to monitor.
[2016-09-11] VITALS (9 sets, daily range): BP systolic 120–143; BP diastolic 68–78; PULSE 61–75; RESP 18–19; O2SAT 92–97
--- NOTE | 2016-09-11 04:19 | NUR ---
Uneventful Night Pt denies SOB at bedrest,mild SOB when stood up at bedside. SPO2 90-96% on Trilogy with O2 4L. [employer] monitoring. Denies cough/any pain/N/V/fever/chills. Fine crackles bilaterally LLs posteriorly. Tele: SR 60S 1ST AVB IVCD. 2+ pitting edema at bilateral LEs, elevated on pillow. VSS, sleeping comfortably most of night.
[2016-09-11 06:41] LABS: Magnesium 1.8 mg/dL (1.6-2.6)
[2016-09-11] MEDS: Pantoprazole 4 mg/mL 10 mL Inj IVPUSH SCH (08:07)
[2016-09-11] MEDS: Furosemide 10 mg/mL 4 mL Inj IVPUSH SCH (08:13)
[2016-09-11] MEDS: Insulin GLARgine 100 Unit/mL Syringe SUBQ SCH (08:14)
[2016-09-11] MEDS: Insulin Human REGular 300 Unit/3 mL Inj SUBQ SCH ×4 (08:15→22:00)
--- NOTE | 2016-09-11 14:11 | NUR ---
Social Work-readiness for discharge: Data:EMR reviewed. Pt is on day 9 of hospitalization for dyspnea per H&P. Pt is not medically stable, anticipate tomorrow. PT continues to work with pt and recommend home with HH Services. Pt has trilogy ceramic coater machine as well. SW followed up with pt at bedside to discuss discharge planning, SW role explained. Referral has been made for [facility] and PT. Pt is still in agreement with this plan and states his daughter will be providing transport home at discharge. F2F in folder. SW will continue to follow. Assessment:Pt who would benefit from HH. Plan:Pt to discharge home when medically stable via POV. Referral made to [facility] for RN, and PT, access given. F2F in folder. SW will continue to follow. SIMA Hernandez
--- NOTE | 2016-09-11 15:54 | PCM.PNMED ---
Subjective Date of Service Sep 11, 2016 Subjective denies any new issues/complaints. continued SOB Exam Vital Signs Vital Sign - Last Date Time Temp Pulse Resp B/P Pulse Ox O2 Delivery O2 Flow Rate FiO2 09/11/16 13:28 36.8 63 19 120/68 97 4.00 09/11/16 08:30 Supplement Oxygen 09/06/16 00:23 50 Intake and Output 09/10/16 09/10/16 09/11/16 Cumulative From/Thru 15:00 23:00 07:00 09/02/16 11:34 - 09/11/16 06:47 Intake Total 772 ml 200 ml 7494 ml Output Total 700 ml 475 ml 46385 ml Balance 72 ml -275 ml -6911 ml Intake Oral 772 ml 200 ml 7494 ml Output Urine Total 700 ml 475 ml 92939 ml # Voids 3 # Bowel Movements 1 Exam General: Alert, Cooperative, No Acute Distress Eyes: Scleral Anicteric Mouth: Mucous Membr Moist/[place] Neck: Supple Chest & Lungs: Chest Wall Normal, Expiratory wheezes (mild bilateral) Cardiovascular: Regular Rate/Rhythm Abdomen: Non-tender, Non-distended, Normoactive bowel tones, Soft Extremities: No cyanosis/clubbing. 2+ pitting edema in LE bilat (improving compared to prior days) Neurological: Grossly Neurologically Intact, Normal Speech IVs and Medications Medications Reviewed: Medications were reviewed in detail Lab and Diagnostics Result Diagram: 09/08/16 0335 09/11/16 0540 [place] [address] Echocardiogram Report Name: ABBY BRAVO DStudy Da te: 09/04/2016 Height: 6 9 in Hospital Exam Location: [facility] Weight: 2 43 lb Gender: Male BSA: 2.2 m2 : 1940 Age: 76 yrs BP: 170/7 5 mmHg Reason For Study: ELEVATED BNP History: Situs inversus, COPD, HTN, Diabetes Ordering Physician: [facility]OSPITALIST [facility] Performed By: Kayla Iglesias Referring Physician: Dr. Nicholas Boggs Interpretation Summary Technically difficult study. The patient has Situs Inversus. Borderline concentric left ventricular hypertrophy with ejection fraction 60- 65%. Mild aortic valve sclerosis. Mild tricuspid regurgitation. Right ventricular systolic pressure is estimated to be 32 mmHg plus the clinically estimated CVP which cannot be estimated on this exam. Comparison is made with the echocardiogram of 07/16/2015, there has been no significant change. Assessment & Plan 76 year old male with history of DM, HTN, presumed HARRISON (not diagnosed with a sleep study) and presumed COPD (without PFT study) who reportedly had been on supplemental oxygen for the past year due to persisting hypoxia on room air presents with a complaint of shortness of breath and weakness after he took himself off of supplemental O2 about 3 days prior to presentation. # Acute on chronic hypoxic hypercarbic respiratory failure. present on admission. improving - likely due to obesity hypoventilation syndrome and chronic left hemidiaphragmatic palsy. - He has been placed on oxygen during the day and Trilogy at night during this hospitalization - Echo unremarkable - CTA chest negative for PE - appreciate pulmonology consult. will f/u w/ recs # Possible acute on chronic diastolic heart failure with bilateral LE edema and possible pulmonary arterial hypertension (noted on CTA chest), present on admission - Echo showing EF 60-65% and results unchanged from previous echo 07/18/2016 - c/w IV Lasix 40mg daily # Generalized Weakness, acute on chronic. poa - ? if secondary to underlying pulmonary issues - PT consult - f/u # Chronic Hypertension. stable - c/w home medications # Diabetes - f/u HgA1C - c/w home insulin - hold Metformin fo now - start ISS # Hyperlipidemia. chronic - c/w statin Dispo: 1-2 days pending improved respiratory status and further diuresis GI Prophylaxis: Proton Pump Inhibitor VTE Prophylaxis: Sub-Q Enoxaparin VTE Mechanical Devices: Intermittant Pneumatic CD Resuscitation Status: CPR: Attempt Resuscitation Angelo Garcia Sep 11, 2016 15:54
--- NOTE | 2016-09-11 17:42 | NUR ---
Respiratory Pt denies SOB this shift. Up to side of bed for all meals. Weaned to 1L O2 this shift. No s/s resp distress.
[2016-09-12] VITALS (8 sets, daily range): BP systolic 134–152; BP diastolic 74–82; PULSE 63–72; RESP 16–20; O2SAT 90–96
--- NOTE | 2016-09-12 05:19 | NUR ---
O2 Pt on RA wearing Trilogy while sleeping. Sats 88-94%. Denies SOB. Call light within reach, using appropriately. Pleasant and cooperative with care.
[2016-09-12] MEDS: Insulin Human REGular 300 Unit/3 mL Inj SUBQ SCH ×4 (08:11→20:51)
[2016-09-12] MEDS: Furosemide 10 mg/mL 4 mL Inj IVPUSH SCH (08:15)
--- NOTE | 2016-09-12 15:07 | NUR ---
resp status Sats 92-96% on 2L during the day. Pt up walking in room frequently, tolerates well, has steady gait. Lungs sound slightly coarse. Tele SR IVCD
--- NOTE | 2016-09-12 18:26 | PCM.PNMED ---
Subjective Date of Service Sep 12, 2016 Subjective denies any new issues/complaints. Exam Vital Signs Vital Sign - Last Date Time Temp Pulse Resp B/P Pulse Ox O2 Delivery O2 Flow Rate FiO2 09/12/16 16:00 68 20 93 Room Air 09/12/16 14:05 36.4 134/74 2.00 09/06/16 00:23 50 Intake and Output 09/11/16 09/11/16 09/12/16 Cumulative From/Thru 15:00 23:00 07:00 09/02/16 11:34 - 09/12/16 06:52 Intake Total 520 ml 0 ml 8014 ml Output Total 600 ml 400 ml 33343 ml Balance -80 ml -400 ml -7391 ml Intake Oral 520 ml 0 ml 8014 ml Output Urine Total 600 ml 400 ml 12106 ml # Voids 3 # Bowel Movements 1 Exam General: Alert, Cooperative, No Acute Distress Eyes: Scleral Anicteric Mouth: Mucous Membr Moist/[place] Neck: Supple Chest & Lungs: Chest Wall Normal, Expiratory wheezes (mild bilateral) Cardiovascular: Regular Rate/Rhythm Abdomen: Non-tender, Non-distended, Normoactive bowel tones, Soft Extremities: No cyanosis/clubbing. 1+ pitting edema in LE bilat (improving compared to prior days) Neurological: Grossly Neurologically Intact, Normal Speech IVs and Medications Medications Reviewed: Medications were reviewed in detail Lab and Diagnostics Result Diagram: 09/08/16 0335 09/12/16 0627 [place] [id number] Echocardiogram Report Name: ABBY BRAVO DStudy Da te: 09/04/2016 Height: 6 9 in Hospital Exam Location: [facility] Weight: 2 43 lb Gender: Male BSA: 2.2 m2 : 1940 Age: 76 yrs BP: 170/7 5 mmHg Reason For Study: ELEVATED BNP History: Situs inversus, COPD, HTN, Diabetes Ordering Physician: HOSPITALIST [facility] Performed By: Kayla Iglesias Referring Physician: Dr. Nicholas Boggs Interpretation Summary Technically difficult study. The patient has Situs Inversus. Borderline concentric left ventricular hypertrophy with ejection fraction 60- 65%. Mild aortic valve sclerosis. Mild tricuspid regurgitation. Right ventricular systolic pressure is estimated to be 32 mmHg plus the clinically estimated CVP which cannot be estimated on this exam. Comparison is made with the echocardiogram of 07/16/2015, there has been no significant change. Assessment & Plan 76 year old male with history of DM, HTN, presumed HARRISON (not diagnosed with a sleep study) and presumed COPD (without PFT study) who reportedly had been on supplemental oxygen for the past year due to persisting hypoxia on room air presents with a complaint of shortness of breath and weakness after he took himself off of supplemental O2 about 3 days prior to presentation. # Acute on chronic hypoxic hypercarbic respiratory failure. present on admission. improving - likely due to obesity hypoventilation syndrome and chronic left hemidiaphragmatic palsy. - He has been placed on oxygen during the day and Trilogy at night during this hospitalization - Echo unremarkable - CTA chest negative for PE - appreciate pulmonology consult. will f/u w/ recs # Possible acute on chronic diastolic heart failure with bilateral LE edema and possible pulmonary arterial hypertension (noted on CTA chest), present on admission - Echo showing EF 60-65% and results unchanged from previous echo 07/18/2016 - c/w IV Lasix 40mg daily # Generalized Weakness, acute on chronic. poa - ? if secondary to underlying pulmonary issues - PT consult - f/u # Chronic Hypertension. stable - c/w home medications # Diabetes - f/u HgA1C - c/w home insulin - hold Metformin fo now - start ISS # Hyperlipidemia. chronic - c/w statin Dispo: 1-2 days pending improved respiratory status and further diuresis GI Prophylaxis: Proton Pump Inhibitor VTE Prophylaxis: Sub-Q Enoxaparin VTE Mechanical Devices: Intermittant Pneumatic CD Resuscitation Status: CPR: Attempt Resuscitation Time spent 25 min Angelo Garcia Sep 12, 2016 18:26
[2016-09-12] MEDS ORDERED: Insulin GLARgine 100 Unit/mL Syringe SUBQ SCH (21:00)
[2016-09-13] VITALS (8 sets, daily range): BP systolic 125–151; BP diastolic 70–84; PULSE 62–74; RESP 16–18; O2SAT 90–97
--- NOTE | 2016-09-13 05:47 | NUR ---
Activity Pt slept through night, using Trilogy on 4L O2. Sats remained at 91 to 94%. Will continue to monitor O2.
[2016-09-13] MEDS: Insulin Human REGular 300 Unit/3 mL Inj SUBQ SCH ×2 (07:54→11:47)
[2016-09-13] MEDS: Furosemide 10 mg/mL 4 mL Inj IVPUSH SCH (08:25)
--- NOTE | 2016-09-13 09:51 | NUR ---
Respiratory Home 02 evaluation: -Sats on RA: 93% -Sats walking on RA: 86% -Sats walking on 2 LNC: 91%
--- NOTE | 2016-09-13 10:42 | NUR ---
Social Work: Discharge Data: Pt is on day 11 of hospitalization. EMR reviewed. Pt d/c orders are in. SPLICING SUPERVISOR called [facility] to let them know pt will d/c today. SPLICING SUPERVISOR called [facility], left a message with Zafar, access previously given, F2F faxed to him. No further d/c planning needs identified at this time. Plan: Pt will d/c home via POV today with [facility] for their Trilogy and [facility] for RN/PT. No further d/c planning needs identified at this time. SIMA Ramirez
[2016-09-13] MEDS ORDERED: FURO-129 PO (11:05)
--- NOTE | 2016-09-13 11:09 | PCM.DIMED ---
Discharge Instructions Date of Service Sep 13, 2016 Dates of Hospitalization Sep 02, 2016 at 17:27 Discharge Diagnosis Discharge Diagnosis # Acute on chronic hypoxic hypercarbic respiratory failure. present on admission. improved - likely due to obesity hypoventilation syndrome and chronic left hemidiaphragmatic palsy. # Possible acute on chronic diastolic heart failure with bilateral lower extremity edema and possible pulmonary arterial hypertension (noted on CTA chest ), present on admission. improved. # Generalized Weakness, acute on chronic. present on admission. improved # Chronic Hypertension. stable # Diabetes, chronic. stable - f/u HgA1C 6.6 # Hyperlipidemia. chronic Diet Low fat, Low Sodium, Heart Healthy, Diabetic Activity Home Health Phyical Therapy Call your provider Fever or Chills, Shortness of breath, Chest pain Patient Instructions Seek immediate medical attention if any new or worsening signs or symptoms occur. Follow-up plan 1. Followup with your primary care provider next Friday as already scheduled and to adjust the dose of Furosemide (Lasix) as appropriate. Follow-up Provider: Nicholas Rollins MD, Masoud Sep 13, 2016 11:09
--- NOTE | 2016-09-13 11:59 | NUR ---
Student Nurse Arrived on shift received report from PATRICK RN. Administered morning medications and performed assessment. Pt complained of lower extremity pain due to neuropathy, gabapentin given to control pain. Pt ambulates independently. Pt discharge complete, education included and SR 74 per telemetry. Addendum: 09/13/16 at 1219 by KARMEN MARIE Telemetry d/c, IV removed and intact, vital signs were taken and stable.
--- NOTE | 2016-09-13 13:23 | NUR ---
Discharge Reviewed d/c instructions with pt including care notes and new prescriptions, pt signed and given originals, copies to chart. IV d/c intact, tele removed. Pt VS stable at time of d/c. All belongings including Trilogy CPAP packed and taken home. Pt taken off unit via WC by JOINT CUTTER MACHINE to car to be driven home by daughter.
--- NOTE | 2016-09-13 17:07 | PCM.DC.MED ---
Discharge Summary Date of Service Sep 13, 2016 Dates of Hospitalization Date of Hospital Admission Sep 02, 2016 at 17:27 Date of Discharge: Sep 13, 2016 Providers: Admitting Physician: Rochelle Seals DO Primary Care Physician: Nicholas Boggs MD Attending Physician: Rochelle Seals DO Diagnosis at Time of Discharge Diagnosis at Time of Discharge # Acute on chronic hypoxic hypercarbic respiratory failure. present on admission. improved - likely due to obesity hypoventilation syndrome and chronic left hemidiaphragmatic palsy. # Possible acute on chronic diastolic heart failure with bilateral lower extremity edema and possible pulmonary arterial hypertension (noted on CTA chest ), present on admission. improved. # Generalized Weakness, acute on chronic. present on admission. improved # Chronic Hypertension. stable # Diabetes, chronic. stable - f/u HgA1C 6.6 # Hyperlipidemia. chronic Consultations 1. Pulmonology (Dr. Hassan) Procedures XRay, CTs & MRIs Date of Service: 09/08/16 1906 PROCEDURE: CT ANGIO CHEST PULMONARY EMBOLISM ([id number]) IMPRESSION: 1. No evidence for central pulmonary embolism. Prominent main pulmonary artery would be consistent with background pulmonary arterial hypertension. 2. Left hemidiaphragm elevation causes left lung base atelectasis as well as right deviation of the heart, and may reflect chronic left phrenic nerve dysfunction. Dictated by: Walker Trinh M.D. on 09/08/2016 at 22:00 Approved by: Walker Trinh M.D. on 09/08/2016 at 22:08 Cardiac Echo Impression Date of Service: 09/04/16 0749 Echocardiogram Report Interpretation Summary Technically difficult study. The patient has Situs Inversus. Borderline concentric left ventricular hypertrophy with ejection fraction 60- 65%. Mild aortic valve sclerosis. Mild tricuspid regurgitation. Right ventricular systolic pressure is estimated to be 32 mmHg plus the clinically estimated CVP which cannot be estimated on this exam. Comparison is made with the echocardiogram of 07/16/2015, there has been no significant change. Electronically signed by: Suzette Sosa on Reading Physician:09/04/2016 10:29 AM Brief History 76 year old male with history of DM, HTN, presumed HARRISON (not diagnosed with a sleep study) and presumed COPD (without PFT study) who reportedly had been on supplemental oxygen for the past year due to persisting hypoxia on room air presents with a complaint of shortness of breath and weakness after he took himself off of supplemental O2 about 3 days prior to presentation. Hospital Course # Acute on chronic hypoxic hypercarbic respiratory failure. present on admission. Improved - likely due to obesity hypoventilation syndrome and chronic left hemidiaphragmatic palsy. - He has been placed on oxygen during the day and Trilogy at night during this hospitalization - Echo unremarkable - CTA chest negative for PE - appreciate pulmonology consult. # Possible acute on chronic diastolic heart failure with bilateral LE edema and possible pulmonary arterial hypertension (noted on CTA chest), present on admission - Echo showing EF 60-65% and results unchanged from previous echo 07/18/2016 - treated with IV Lasix 40mg daily during this hospital and will be discharged home on PO Lasix with recommendation for close f/u w/ PCP and possible further pulmonology referral as outpatient. # Generalized Weakness, acute on chronic. poa. improved - ? if secondary to underlying pulmonary issues - home with # Chronic Hypertension. stable - c/w home medications # Diabetes - HgA1C 6.6 - c/w home meds # Hyperlipidemia. chronic - c/w statin by day of d/c lungs CTA bilat. still having 1+ pitting edema in LE bilat. assessed by respiratory therapist and still needs home O2. Exam Vital Signs (Last) Date Time Temp Pulse Resp B/P Pulse Ox O2 Delivery O2 Flow Rate FiO2 09/13/16 12:08 36.5 70 18 125/70 92 Room Air 09/13/16 05:37 4.00 Test 09/02/16 14:45 09/02/16 18:01 09/02/16 22:03 09/08/16 03:35 Neutrophils (%) (Auto) 74.0% (40-74) Lymphocytes (%) (Auto) 14.7% (14-46) Monocytes (%) (Auto) 9.0% (4-12) Eosinophils (%) (Auto) 1.9% (0-5) Basophils (%) (Auto) 0.2% (0-3) Troponin T < 0.010ug/L (0.0-0.011) Hold [place] Top Tube Received (Received) Urine Color Yellow (YELLOW) Urine Appearance Clear (CLEAR,HAZY) Urine pH 6.0 (5.0-8.0) Urine Specific [place] 1.025 (1.003-1.035) Urine Protein Negativemg/dL (NEG,TRACE) Urine Glucose (UA) Negativemg/dL (NEGATIVE) Urine Ketones Negativemg/dL (NEGATIVE) Urine Occult Blood Negative (NEGATIVE) Urine Nitrite Negative (NEGATIVE) Urine Bilirubin Negative (NEGATIVE) Urine Urobilinogen 1.0mg/dL (NORMAL) Urine Leukocyte Esterase Negative (NEGATIVE) Urine RBC 0-2/hpf (0-2) Urine WBC 0-5/hpf (0-5) Urine Epithelial Cells None/hpf (NONE-MOD) Urine Crystals None seen (NONE SEEN) Urine Bacteria Few/hpf (NONE-FEW) Urine Hyaline Casts None/lpf (NONE) Urine Granular Casts None seen (NONE SEEN) Urine Waxy Casts None seen (NONE SEEN) Urine Red Blood Cell Casts None seen (NONE SEEN) Urine White Blood Cell Casts None seen (NONE SEEN) Urine Mucus None seen (None Seen) Urine Trichomonas None seen (NONE SEEN) Urine Yeast None (NONE SEEN) Urinalysis Comment None Urine Culture Reflexed Not indicated Hold Urine Received (Received) White Blood Count 4.5th/mm3 (3.8-10.1) Red Blood Count 4.03mil/mm3 (4.40-5.80) Hemoglobin 12.9g/dL (13.8-17.2) Hematocrit 39.7% (41.0-50.0) Mean Corpuscular Volume 98.5fL (81-100) Mean Corpuscular Hemoglobin 32.0pg (27.0-35.0) Mean Corpuscular Hemoglobin Concent 32.5% (32.0-37.0) Red Cell Distribution Width 13.0% (12.3-15.4) Platelet Count 172bil/L (150-400) Hemoglobin A1c 6.6% (4.8-5.6) Total Bilirubin 0.5mg/dL (0.0-1.2) Aspartate Amino Transf (AST/SGOT) 14U/L (0-50) Alanine Aminotransferase (ALT/SGPT) 10U/L (0-44) Alkaline Phosphatase 32U/L (25-160) Total Protein 6.5g/dL (6.4-8.4) Albumin 3.8g/dL (3.4-5.0) Test 09/11/16 05:40 09/12/16 06:27 Magnesium Level 1.8mg/dL (1.6-2.6) Pro-B-Type Natriuretic Peptide 145.1pg/mL (0-486) Sodium Level 140mEq/L (134-144) Potassium Level 4.3mEq/L (3.5-5.2) Chloride Level 98mEq/L (97-108) Carbon Dioxide Level 30mmol/L (18-29) Blood Urea Nitrogen 20mg/dL (8-27) Creatinine 0.74mg/dL (0.76-1.27) Estimat Glomerular Filtration Rate 109mL/min (>59) Glucose Level 174mg/dL (60-99) Calcium Level 8.9mg/dL (8.5-10.1) Discharge Medications Discharge Medications Amlodipine (Amlodipine) 10 Mg Tablet 10 MG PO DAILY (Reported) Atenolol (Atenolol) 100 Mg Tablet 100 MG PO DAILY (Reported) Fenofibrate,Micronized (Fenofibrate) 130 Mg Capsule 130 MG PO DAILY (Reported) Furosemide (Lasix) 20 Mg Tablet 20 MG PO DAILY Prescribed by: NAGA BURNETT MD Gabapentin (Gabapentin) 800 Mg Tablet 800 MG PO TID (Reported) Insulin Glargine (Lantus U100 Insulin Vial) 100 Unit/Ml Vial 15 UNIT SUBQ DAILY (Reported) Lisinopril (Lisinopril) 40 Mg Tablet 40 MG PO DAILY (Reported) Losartan Potassium (Losartan Potassium) 50 Mg Tablet 50 MG PO DAILY (Reported) Metformin ER (Metformin ER) 750 Mg Tablet 750 MG PO TID (Reported) Simvastatin (Simvastatin) 10 Mg Tablet 10 MG PO HS (Reported) Sitagliptin Phos (Januvia) 100 Mg Tablet 100 MG PO DAILY (Reported) Tamsulosin (Flomax) 0.4 Mg Capsule 0.4 MG PO DAILY (Reported) Vit C/Vit E/Lutein/Min/[place]-3 (Ocuvite Softgel) 1 Each Capsule 1 EACH PO DAILY (Reported) Followup Plan Disposition: Home with HH Follow-up plan 1. Followup with your primary care provider next Friday as already scheduled and to adjust the dose of Furosemide (Lasix) as appropriate. Discharge Diet: Low fat, Low Sodium, Heart Healthy, Diabetic Discharge Activity: Home Health Phyical Therapy Patient Instructions Seek immediate medical attention if any new or worsening signs or symptoms occur. Follow-up Provider: Nicholas Rollins MD Time spent 35 min copies to: Nicholas Rollins MD, Masoud Sep 13, 2016 17:07
== END 2016-09-13 13:10 | disposition home health service (06) | DRG 189 ==
LOC: SED 11:30 → INTOOBSV 17:27 → MPC 17:27 → OBSVTOIN 17:27 → PCC 09-04 07:37 → MPC 09-08 04:08
PROVIDERS: ADMIT Neuromusculoskeletal Medicine & OMM; ATTEND Neuromusculoskeletal Medicine & OMM
PROC: 4A033R1 Measurement of Arterial Saturation, Peripheral, Percutaneous Approach (ICD-10-PCS; principal; 2016-09-04)
PROC: 5A09557 Assistance with Respiratory Ventilation, Greater than 96 Consecutive Hours, Continuous Positive Airway Pressure (ICD-10-PCS; 2016-09-04)
DX: J96.22 Acute and chronic respiratory failure with hypercapnia (principal); I50.33 Acute on chronic diastolic (congestive) heart failure; E66.2 Morbid (severe) obesity with alveolar hypoventilation; Q89.3 Situs inversus; E87.2 Acidosis; Z68.35 Body mass index [BMI] 35.0-35.9, adult; G72.89 Other specified myopathies; E11.8 Type 2 diabetes mellitus with unspecified complications; Z79.84 Long term (current) use of oral hypoglycemic drugs; Z79.4 Long term (current) use of insulin; I10 Essential (primary) hypertension; Z87.891 Personal history of nicotine dependence; E78.5 Hyperlipidemia, unspecified; J96.21 Acute and chronic respiratory failure with hypoxia